=== PATIENT | female | born 1990 | race African-American/Black ===

== ENCOUNTER 2016-10-05 09:38 | Emergency (ER) | payer MEDICAID ==
--- NOTE | 2016-10-05 10:12 | ER Document Report ---
ED General - General Chief Complaint: Abdominal Pain Stated Complaint: ABDOMINAL PAIN Mode of Arrival: Ambulatory Information source: Patient Notes: 26-year-old female presents with complaints of left flank pain left lower quadrant abdominal pain since yesterday. Patient notes this is similar to previous kidney infection. Patient denies any fevers admits to nausea vomiting 5. Patient denies any burning on urination, denies any vaginal bleeding or discharge TRAVEL OUTSIDE OF THE [place] IN LAST 30 DAYS: No - HPI Onset: Yesterday Onset/Duration: Persistent Quality of pain: Achy Severity: Mild Pain Level: 1 Associated symptoms: Nausea, Vomiting Exacerbated by: Denies Relieved by: Denies Similar symptoms previously: Yes Recently seen / treated by doctor: No - Related Data Allergies/Adverse Reactions: No Known Allergies Allergy (Verified 10/05/16 09:52) Home Medications: Current Home Medications No Home Medications 10/05/16 [History] Past Medical History - Social History Smoking Status: Never Smoker Cigarette use (# per day): No Chew tobacco use (# tins/day): No Smoking Education Provided: No Frequency of alcohol use: Occasional Drug Abuse: None Family History: Reviewed & Not Pertinent Patient has suicidal ideation: No Patient has homicidal ideation: No Renal/ Medical History: Denies: Hx Peritoneal Dialysis Past Surgical History: Reports: Hx Section - Immunizations Hx Diphtheria, Pertussis, Tetanus Vaccination: Yes - 09/22/15 Review of Systems - Review of Systems Notes: REVIEW OF SYSTEMS: CONSTITUTIONAL : Denies fever, chills, or sweats. Denies recent illness. EENT: Denies eye, ear, throat, or mouth pain or symptoms. Denies nasal or sinus congestion or discharge. Denies throat, tongue, or mouth swelling or difficulty swallowing. CARDIOVASCULAR: Denies chest pain. Denies palpitations or racing or irregular heart beat. Denies ankle edema. RESPIRATORY: Denies cough, cold, or chest congestion. Denies shortness of breath, difficulty breathing, or wheezing. GASTROINTESTINAL: Admits to left flank pain left lower quadrant tenderness GENITOURINARY: Denies difficulty urinating, painful urination, burning, frequency, blood in urine, or discharge. FEMALE GENITOURINARY: Denies vaginal bleeding, heavy or abnormal periods, irregular periods. Denies vaginal discharge or odor. MUSCULOSKELETAL: Denies back or neck pain or stiffness. Denies joint pain or swelling. SKIN: Denies rash, lesions or sores. HEMATOLOGIC : Denies easy bruising or bleeding. LYMPHATIC: Denies swollen, enlarged glands. NEUROLOGICAL: Denies confusion or altered mental status. Denies passing out or loss of consciousness. Denies dizziness or lightheadedness. Denies headache. Denies weakness or paralysis or loss of use of either side. Denies problems with gait or speech. Denies sensory loss, numbness, or tingling. Denies seizures. PSYCHIATRIC: Denies anxiety or stress. Denies depression, suicidal ideation, or homicidal ideation. ALL OTHER SYSTEMS REVIEWED AND NEGATIVE. Dictation was performed using [employer] voice recognition software PHYSICAL EXAMINATION: GENERAL: Well-appearing, well-nourished and in no acute distress. HEAD: Atraumatic, normocephalic. EYES: Pupils equal round and reactive to light, extraocular movements intact, conjunctiva are normal. ENT: Nares patent, oropharynx clear without exudates. Moist mucous membranes. NECK: Normal range of motion, supple without lymphadenopathy LUNGS: Breath sounds clear to auscultation bilaterally and equal. No wheezes rales or rhonchi. HEART: Regular rate and rhythm without murmurs ABDOMEN: Soft, mild tenderness in left lower quadrant left CVA tenderness Female : deferred Musculoskeletal: Normal range of motion, no pitting or edema. No cyanosis. NEUROLOGICAL: Cranial nerves grossly intact. Normal speech, normal gait. Normal sensory, motor exams PSYCH: Normal mood, normal affect. SKIN: Warm, Dry, normal turgor, no rashes or lesions noted. Physical Exam - Vital signs Vitals: Temp Pulse Resp BP Pulse Ox 97.7 F 59 L 18 124/81 100 10/05/16 09:43 10/05/16 09:43 10/05/16 09:43 10/05/16 09:43 10/05/16 09:43 Course - Re-evaluation Re-evalutation: 10/05/16 10:12 Patient didn't pain does not appear to be ovarian in nature, her symptoms are more consistent with a kidney infection, urinalysis is pending at this time 10/05/16 11:40 Urinalysis did not note any acute abnormality patient will be sent for a transvaginal ultrasound 10/05/16 11:56 Ultrasound was performed however and patient are insistent that they leave prior to results. I did explain to them the concerns that there is any life-threatening issues that I cannot have further workup since she is leaving, given that I do not have an answer specifically for her concerns this would be a discharge with the understanding that is not appropriate for her to leave prior to results returning However patient vital signs are stable lab work is normal she looks well otherwise - Vital Signs Vital signs: Temp Pulse Resp BP Pulse Ox 97.7 F 59 L 18 124/81 100 10/05/16 09:43 10/05/16 09:43 10/05/16 09:43 10/05/16 09:43 10/05/16 09:43 - Laboratory Result Diagrams: 10/05/16 10:20 10/05/16 10:20 Laboratory results interpreted by me: 10/05/16 10:20 RDW 14.2 H - Diagnostic Test Radiology reviewed: Image reviewed Discharge - Discharge Clinical Impression: Left lower quadrant abdominal pain of unknown etiology Condition: Stable Disposition: HOME, SELF-CARE Instructions: Abdominal Pain ([facility]) Additional Instructions: Follow up with your physician tomorrow for further care or return to the ED IMMEDIATELY if symptoms worsen or new concerns occur. If you cannot afford to follow up with your primary care physician a list of low cost clinics have been provided at the end of your discharge papers as well. You are leaving without ultrasound report, if there is any worsening symptoms return immediately
[2016-10-05 10:37] LABS: APPEARANCE,URINE CLEAR; BILIRUBIN,URINE NEGATIVE (NEGATIVE); GLUCOSE, URINE NEGATIVE (NEGATIVE); KETONES,URINE NEGATIVE (NEGATIVE); LEUKOCYTE ESTERASE,URINE NEGATIVE (NEGATIVE); NITRITE,URINE NEGATIVE (NEGATIVE); PROTEIN,URINE NEGATIVE (NEGATIVE); URINE SPECIFIC GRAVITY 1.026; UROBILINOGEN,URINE NEGATIVE mg/dL (<2.0)
[2016-10-05 10:38] LABS: ABSOLUTE BASOPHILS # (AUTO) 0.1 10^3/uL (0.0-0.2); ABSOLUTE EOSINOPHILS # (AUTO) 0.3 10^3/uL (0.0-0.6); ABSOLUTE LYMPHOCYTES (AUTO) 3.3 10^3/uL (0.5-4.7); ABSOLUTE MONOCYTES (AUTO) 0.6 10^3/uL (0.1-1.4); ABSOLUTE NEUT (AUTO) 4.8 10^3/uL (1.7-8.2); EOSINOPHILS % (AUTO) 3.6 % (0-6); HEMATOCRIT 37.5 % (36.0-47.0); HEMOGLOBIN 12.5 g/dL (12.0-15.5); LYMPHOCYTES % (AUTO) 35.6 % (13-45); MEAN CORPUSCULAR HEMOGLOBIN 28.1 pg (27.0-33.4); MEAN CORPUSCULAR HGB CONC 33.5 g/dL (32.0-36.0); MEAN CORPUSCULAR VOLUME 84 fl (80-97); MONOCYTES % (AUTO) 7.1 % (3-13); RED BLOOD COUNT 4.46 10^6/uL (3.72-5.28); RED CELL DISTRIBUTION WIDTH 14.2 % (11.5-14.0); SEGMENTED NEUTROPHILS % (AUTO) 52.7 % (42-78); WHITE BLOOD COUNT 9.2 10^3/uL (4.0-10.5)
[2016-10-05 10:53] LABS: ALANINE AMINOTRANSFERASE 20 U/L (9-52); ALBUMIN 4.7 g/dL (3.5-5.0); ALKALINE PHOSPHATASE 68 U/L (38-126); ANION GAP 15 (5-19); ASPARTATE AMINO TRANSFERASE 17 U/L (14-36); BILIRUBIN,DIRECT 0.1 mg/dL (0.0-0.4); BILIRUBIN,TOTAL 0.3 mg/dL (0.2-1.3); BLOOD UREA NITROGEN 15 mg/dL (7-20); CALCIUM 9.8 mg/dL (8.4-10.2); CARBON DIOXIDE 26 mmol/L (22-30); CHLORIDE 104 mmol/L (98-107); CREATININE RESULT 0.68 mg/dL (0.52-1.25); GLUCOSE 91 mg/dL (75-110); LIPASE 70.6 U/L (23-300); POTASSIUM 4.4 mmol/L (3.6-5.0); SODIUM 144.6 mmol/L (137-145); TOTAL PROTEIN 8.1 g/dL (6.3-8.2)
[2016-10-05 12:08] VITALS: BP 122/74
== END 2016-10-05 12:00 | disposition home or self-care (01) ==
LOC: ER 09:38 → EEVIPCON 09:38 → ER 12:00
DX: R10.32 Left lower quadrant pain (principal); R11.2 Nausea with vomiting, unspecified; Z87.440 Personal history of urinary (tract) infections
CPT/HCPCS: 36415; 76830; 80053; 81001; 81025; 83690; 85025; 93976; 99284

== ENCOUNTER 2016-10-27 14:00 | Emergency (ER) | payer MEDICAID ==
--- NOTE | 2016-10-27 21:46 | ER Document Report ---
ED GI/ - General Mode of Arrival: Ambulatory Information source: Patient TRAVEL OUTSIDE OF THE [place] IN LAST 30 DAYS: No - HPI Patient complains to provider of: Abdominal pain, Vomiting Onset: Other Quality of pain: Cramping Associated symptoms: None - General Time Seen by Provider: 10/27/16 21:27 Notes: Patient is a 26-year-old female who presents to the emergency department today with complaints of an upset stomach. Patient states 4 days ago she had URI symptoms including cough and congestion. Patient states 2 days ago that seemed to get better however she developed diarrhea and vomiting. Patient states she has had mild abdominal cramping. Patient states her last menstrual period was . (MARTIN SAEED) - Related Data Allergies/Adverse Reactions: No Known Allergies Allergy (Verified 10/05/16 09:52) Past Medical History - General Information source: Patient, [facility] Records - Social History Smoking Status: Never Smoker Cigarette use (# per day): No Frequency of alcohol use: None Drug Abuse: None Lives with: Family Family History: Reviewed & Not Pertinent Past Surgical History: Reports: Hx Section - Immunizations Hx Diphtheria, Pertussis, Tetanus Vaccination: Yes - 09/22/15 Review of Systems - Review of Systems Constitutional: No symptoms reported EENT: No symptoms reported Cardiovascular: No symptoms reported Respiratory: No symptoms reported Gastrointestinal: See HPI, Abdominal pain - cramping, Nausea, Vomiting Genitourinary: No symptoms reported Female Genitourinary: No symptoms reported Musculoskeletal: No symptoms reported Skin: No symptoms reported Hematologic/Lymphatic: No symptoms reported Neurological/Psychological: No symptoms reported -: Yes All other systems reviewed and negative Physical Exam - Notes Notes: Physical Exam: General: Alert, appears well. HEENT: Normocephalic. Atraumatic. PERRL. Extraocular movements intact. Oropharynx clear. Neck: Supple. Non-tender. Respiratory: No respiratory distress. Clear and equal breath sounds bilaterally. Cardiovascular: Regular rate and rhythm. Abdominal: Normal Inspection. Non-tender. No distension. Normal Bowel Sounds. Back: Non-tender. No deformity or step off. Extremities: Moves all four extremities. Upper extremities: Normal inspection. Normal ROM. Lower extremities: Normal inspection. No edema. Normal ROM. Neurological: Normal cognition. AAOx4. Normal speech. Psychological: Normal affect. Normal Mood. Skin: Warm. Dry. Normal color. (MARTIN SAEED) Course - Re-evaluation Re-evalutation: 10/27/16 22:26 The patient was given the medication for nausea and then requested her discharge papers according to the nurse. She had been eating crackers and drinking sodas. I suspect she was here for a test only. (DAVI HENAO) Discharge - Discharge Clinical Impression: Nausea, vomiting and diarrhea, Condition: Stable Disposition: HOME, SELF-CARE Additional Instructions: : You are . care is best started as early in as possible. If you're unsure about continuing this , you should discuss this with your physician or with chisel worker at [facility]. You should take only medications approved by your physician. Acetaminophen can safely be taken for minor pains. As a rule, medication for chronic conditions such as asthma or seizures can safely be continued. You should discuss with the physician every medicine you take. Any regular exercise program can be continued. Talk to your physician, however, before engaging in competitive or demanding sports. Alcohol, smoking, and "street drugs" are dangerous to your baby. Cocaine is especially dangerous. Don't use any illicit drugs! Viral Syndrome: The physician has diagnosed a viral infection. Viruses not only cause "colds," but can cause many different symptoms including generalized aching, fever, headache, cough, diarrhea, nausea, vomiting, and fatigue. The treatment, for the most part, is simply relief of symptoms. This means that antibiotics are usually not given. Rest, fluids, pain medications and, occasionally, medication for the specific symptoms that are most bothersome will be prescribed. Use good handwashing to avoid passing the virus to others. Shared toys should be cleaned with disinfectant. Clean the toilets, sinks, and counter surfaces in bathrooms. Launder clothing in hot water. Contact the physician if you develop any new or unusual symptoms such as severe headache, stiff neck, high fever, chest pain, productive cough, or shortness of breath. You should be rechecked if you don't see marked improvement within seven to 10 days. DRINK COOL CLEAR LIQUIDS TODAY. REST. TAKE THE MEDICATION PRESCRIBED FOR NAUSEA IF NEEDED. FOLLOW UP WITH YOUR DOCTOR AND THE HEALTH DEPARTMENT. RETURN IF ANY NEW OR WORSENING SYMPTOMS. Prescriptions: Promethazine HCl [Phenergan 25 mg Tablet] 25 mg PO ASDIR PRN #12 tablet PRN Reason: Scribe Attestation: 10/27/16 22:33 I personally performed the services described in the documentation, reviewed and edited the documentation which was dictated to the scribe in my presence, and it accurately records my words and actions. (DAVI HENAO) Scribe Documentation - Scribe Written by Alina:: Alina Woody, 10/27/16 [id number] acting as scribe for :: Lizz
[2016-10-27] MEDS ORDERED: PROMETHAZINE HCL 25 MG TABLET PO ONE (21:55)
[2016-10-27] MEDS ORDERED: DIPHENHYDRAMINE HCL 25 MG CAPSULE PO ONE (21:55)
[2016-10-27 21:56] LABS: ADD ON TESTING BLD IN LAB ACKNOWLEDGE
[2016-10-27 23:03] VITALS: BP 123/80
[2016-10-28 08:18] LABS: ABSOLUTE BASOPHILS # (AUTO) 0.1 10^3/uL (0.0-0.2); ABSOLUTE EOSINOPHILS # (AUTO) 0.1 10^3/uL (0.0-0.6); ABSOLUTE LYMPHOCYTES (AUTO) 3.2 10^3/uL (0.5-4.7); ABSOLUTE MONOCYTES (AUTO) 0.5 10^3/uL (0.1-1.4); ABSOLUTE NEUT (AUTO) 4.7 10^3/uL (1.7-8.2); BASOPHILS % (AUTO) 0.6 % (0-2); HEMATOCRIT 37.2 % (36.0-47.0); HEMOGLOBIN 12.2 g/dL (12.0-15.5); HGB HCT DIFFERENCE -0.6; LYMPHOCYTES % (AUTO) 37.2 % (13-45); MEAN CORPUSCULAR HEMOGLOBIN 28.2 pg (27.0-33.4); MEAN CORPUSCULAR HGB CONC 32.8 g/dL (32.0-36.0); MEAN CORPUSCULAR VOLUME 86 fl (80-97); MONOCYTES % (AUTO) 6.3 % (3-13); RED BLOOD COUNT 4.32 10^6/uL (3.72-5.28); RED CELL DISTRIBUTION WIDTH 14.3 % (11.5-14.0); SEGMENTED NEUTROPHILS % (AUTO) 54.9 % (42-78); WHITE BLOOD COUNT 8.5 10^3/uL (4.0-10.5)
[2016-10-28 14:29] LABS: APPEARANCE,URINE SLIGHTLY-CLOUDY; BILIRUBIN,URINE NEGATIVE (NEGATIVE); GLUCOSE, URINE NEGATIVE (NEGATIVE); KETONES,URINE TRACE mg/dL (NEGATIVE); LEUKOCYTE ESTERASE,URINE NEGATIVE (NEGATIVE); NITRITE,URINE NEGATIVE (NEGATIVE); PROTEIN,URINE NEGATIVE (NEGATIVE); URINE SPECIFIC GRAVITY 1.032; UROBILINOGEN,URINE NEGATIVE mg/dL (<2.0)
[2016-10-28 17:43] LABS: BLOOD UREA NITROGEN 21 mg/dL (7-20); CALCIUM 9.4 mg/dL (8.4-10.2); CREATININE RESULT 0.68 mg/dL (0.52-1.25); GLUCOSE 94 mg/dL (75-110); POTASSIUM 4.1 mmol/L (3.6-5.0)
[2016-10-28 17:44] LABS: ALBUMIN 4.3 g/dL (3.5-5.0); ANION GAP 13 (5-19); CARBON DIOXIDE 22 mmol/L (22-30); CHLORIDE 106 mmol/L (98-107); SODIUM 141.1 mmol/L (137-145)
[2016-10-28 17:45] LABS: ALANINE AMINOTRANSFERASE 24 U/L (9-52); ALKALINE PHOSPHATASE 62 U/L (38-126); ASPARTATE AMINO TRANSFERASE 13 U/L (14-36); BILIRUBIN,TOTAL 0.3 mg/dL (0.2-1.3)
[2016-10-28 17:46] LABS: BILIRUBIN,DIRECT 0.2 mg/dL (0.0-0.4); LIPASE 98.7 U/L (23-300); TOTAL PROTEIN 7.7 g/dL (6.3-8.2)
== END 2016-10-27 22:50 | disposition home or self-care (01) ==
LOC: ER 14:00
DX: O21.9 Vomiting of pregnancy, unspecified (principal); R19.7 Diarrhea, unspecified; R10.9 Unspecified abdominal pain; Z3A.01 Less than 8 weeks gestation of pregnancy
CPT/HCPCS: 99284; 36415; 84702; 83690; 84703; 85025; 80053; 81001; J3490 ×2

== ENCOUNTER 2016-11-03 13:08 | Emergency (ER) | payer MEDICAID ==
[2016-11-03 13:24] VITALS: BP 127/80
--- NOTE | 2016-11-03 13:36 | ER Document Report ---
ED GI/ - General Chief Complaint: Vomiting Stated Complaint: VOMITING,LIGHTHEADED Time Seen by Provider: 11/03/16 13:32 Notes: Patient is here because her workplace requires a note for her to return to work. Patient was here about 1 week ago with nausea and vomiting and she was found to be . She is continued to have nausea and vomiting, although the Phenergan seems to be helping, but was unable to work last night and has to have a note in order to return to work. She has had some lightheadedness as well as the nausea and vomiting. No diarrhea. No fevers. No other symptoms of any infection. Denies any abdominal pain or vaginal bleeding. LMP 09/25. TRAVEL OUTSIDE OF THE [place] IN LAST 30 DAYS: No - Related Data Allergies/Adverse Reactions: No Known Allergies Allergy (Verified 11/03/16 13:19) Past Medical History - Social History Smoking Status: Unknown if Ever Smoked Family History: Reviewed & Not Pertinent Patient has suicidal ideation: No Patient has homicidal ideation: No Endocrine Medical History: Denies: Hx Diabetes Mellitus Type 1, Hx Diabetes Mellitus Type 2 Past Surgical History: Reports: Hx Section - Immunizations Hx Diphtheria, Pertussis, Tetanus Vaccination: Yes - 09/22/15 Review of Systems - Review of Systems Constitutional: denies: Chills, Fever Cardiovascular: denies: Chest pain, Dyspnea, Syncope Respiratory: denies: Cough Physical Exam - Vital signs Vitals: Temp Pulse Resp BP Pulse Ox 98.0 F 75 16 127/80 H 100 11/03/16 13:19 11/03/16 13:19 11/03/16 13:19 11/03/16 13:19 11/03/16 13:19 - Notes Notes: PHYSICAL EXAMINATION: GENERAL: Well-appearing, in no acute distress. Vital signs are normal. HEAD: Atraumatic, normocephalic. Moist mucous membranes. NECK: Normal range of motion, supple. LUNGS: Breath sounds clear and equal bilaterally. HEART: Regular rate and rhythm without murmurs. ABDOMEN: Soft, nontender. No guarding or rebound. BACK: No tenderness throughout entire back. EXTREMITIES: Normal range of motion without pain. SKIN: Warm, dry, no rashes. Course - Re-evaluation Re-evalutation: 11/03/16 15:48 Says she feels much better than she has felt in the past week and is really only here because she needs a note saying she can return to work. I offered to do further testing on her, if she felt so inclined, but she says that she really does not want to do any tests. She says that she has ample nausea and vomiting medicine at home. Patient will be provided with a note saying she can return to work tomorrow. - Vital Signs Vital signs: Temp Pulse Resp BP Pulse Ox 98.0 F 75 16 127/80 H 100 11/03/16 13:19 11/03/16 13:19 11/03/16 13:19 11/03/16 13:19 11/03/16 13:19 Discharge - Discharge Clinical Impression: Vomiting affecting Qualifiers: Weeks of gestation: less than 8 weeks Qualified Code(s): Z3A.01 - Less than 8 weeks gestation of Condition: Stable Disposition: HOME, SELF-CARE Additional Instructions: You are . care is best started as early in as possible. If you're unsure about continuing this , you should discuss this with your physician or with vp scientific at [facility]. You should take only medications approved by your physician. Acetaminophen can safely be taken for minor pains. As a rule, medication for chronic conditions such as asthma or seizures can safely be continued. You should discuss with the physician every medicine you take. Any regular exercise program can be continued. Talk to your physician, however, before engaging in competitive or demanding sports. Alcohol, smoking, and "street drugs" are dangerous to your baby. Cocaine is especially dangerous. Don't use any illicit drugs! VOMITING: Vomiting (or nausea without vomiting) can be caused by many other different problems. It can mean that something's wrong with the stomach, such as ulcers or inflammation or the intestinal tract, such as appendicitis. But it can also be a symptom of a problem that has nothing to do with the stomach or intestines. Vomiting is common with severe headaches, earaches, tonsillitis, and kidney infections, etc. We see it with pneumonia or heart attacks. Drugs can cause nausea and vomiting. Many abdominal problems cause vomiting; for example, gallstones, kidney stones, pancreatitis, and intestinal obstruction ( blocked bowels). In most cases, curing the vomiting depends on fixing the problem that caused it. For temporary relief, we may use an anti-nausea medicine. For home use, we can prescribe suppositories, chewable pills, pills that dissolve in the mouth, or liquid anti-nausea drugs. If the vomiting seems to be caused by a problem in the stomach, acid-suppressing drugs may be prescribed as well. It's important to avoid dehydration. Sip small amounts of clear liquids ( soft drinks, tea, broth, etc) . Try to take fluids frequently even if you are vomiting to prevent dehydration. Take increasing amounts of fluid and when liquids are being consumed successfully, advance to small amounts of bland food (toast, soups, mashed potatoes, etc.) until you are able to resume a regular diet. Avoid aspirin, tobacco, and alcohol. If the vomiting worsens, if the problem that's making you vomit worsens, or if there's evidence of bleeding in the stomach (such as black, tarry stool, or bloody or black vomit), you should return immediately. Also, return if abdominal pain worsens or becomes localized to one area or you develop high fever. Call your doctor if you aren't improved in 24 hours. ANTINAUSEA MEDICATION: You have been given a medication to suppress nausea and vomiting. This type of medication can be given as a shot, pill, or suppository. It will usually last for many hours. Pills and shots usually last six to eight hours. For the typical illness, only one or two doses of the medication may be necessary. Mild lightheadedness may occur. This type of medicine can cause drowsiness. Do not drive or operate dangerous machinery while under its influence. Do not mix with alcohol. See your doctor at once if you have muscle spasms or tightness, or uncontrollable motions (particularly of the neck, mouth, or jaw). Persistent vomiting or severe lightheadedness should also be evaluated by the physician. FOLLOW-UP CARE: If you have been referred to a physician for follow-up care, call the physician s office for an appointment as you were instructed or within the next two days. If you experience worsening or a significant change in your symptoms, notify the physician immediately or return to the Emergency Department at any time for re-evaluation. Forms: Return to Work Referrals: [facility] [Provider Group] - Follow up as needed
== END 2016-11-03 13:38 | disposition home or self-care (01) ==
LOC: ER 13:08
DX: R11.10 Vomiting, unspecified (principal); R42 Dizziness and giddiness; Z3A.01 Less than 8 weeks gestation of pregnancy
CPT/HCPCS: 99283

== ENCOUNTER 2016-12-02 09:32 | Emergency (ER) | payer MEDICAID ==
[2016-12-02] MEDS ORDERED: ONDANSETRON 4 MG TAB.RAPDIS PO ONE (09:50)
--- NOTE | 2016-12-02 09:52 | ER Document Report ---
ED Medical Screen (RME) - General Chief Complaint: Abdominal Cramping Stated Complaint: DIZZINESS,ABDOMINAL PAIN Time Seen by Provider: 12/02/16 09:50 Notes: Patient says that she is vomiting all the time due to her . She is about 9 weeks . Says the vomiting has worsened over the last couple of weeks. Has not had a fever. Says her urine is very dark and strong smelling. Patient says that Phenergan makes her so sleepy she cannot function or work. TRAVEL OUTSIDE OF THE [place] IN LAST 30 DAYS: No - Related Data Allergies/Adverse Reactions: No Known Allergies Allergy (Verified 12/02/16 09:38) Past Medical History - Social History Chew tobacco use (# tins/day): No Frequency of alcohol use: None Drug Abuse: None Endocrine Medical History: Denies: Hx Diabetes Mellitus Type 1, Hx Diabetes Mellitus Type 2 Renal/ Medical History: Denies: Hx Peritoneal Dialysis Past Surgical History: Reports: Hx Section - Immunizations Hx Diphtheria, Pertussis, Tetanus Vaccination: Yes - 09/22/15 Physical Exam - Vital signs Vitals: Temp Pulse Resp BP Pulse Ox 98.3 F 80 16 118/77 97 12/02/16 09:37 12/02/16 09:37 12/02/16 09:37 12/02/16 09:37 12/02/16 09:37 Course - Vital Signs Vital signs: Temp Pulse Resp BP Pulse Ox 98.3 F 80 16 118/77 97 12/02/16 09:37 12/02/16 09:37 12/02/16 09:37 12/02/16 09:37 12/02/16 09:37
[2016-12-02 10:41] LABS: APPEARANCE,URINE CLOUDY; BILIRUBIN,URINE NEGATIVE (NEGATIVE); GLUCOSE, URINE NEGATIVE (NEGATIVE); KETONES,URINE NEGATIVE (NEGATIVE); LEUKOCYTE ESTERASE,URINE LARGE (NEGATIVE); NITRITE,URINE NEGATIVE (NEGATIVE); PROTEIN,URINE 100 mg/dL (NEGATIVE); URINE SPECIFIC GRAVITY 1.026; UROBILINOGEN,URINE NEGATIVE mg/dL (<2.0)
[2016-12-02] MEDS ORDERED: NITROFURANTOIN MONOHYD/M-CRYST 100 MG CAPSULE PO ONE (10:50)
[2016-12-02] MEDS ORDERED: ACETAMINOPHEN 325 MG TABLET PO ONE (10:59)
--- NOTE | 2016-12-02 12:40 | RADIOLOGY REPORT (SQ) ---
EXAM DESCRIPTION: U/S OB TRANSVAGINAL W/O DOP COMPLETED DATE/TIME: 12/02/2016 12:30 pm REASON FOR STUDY: abd pain, uti COMPARISON: None. TECHNIQUE: Transvaginal static and realtime grayscale images acquired of the pelvis. Additional kandi cted spectral and color Doppler images recorded. All images stored on PACs. bHCG: Not available. LIMITATIONS: None. FINDINGS: FETUS: Living intrauterine . EGA: 9 weeks 6 days CHARLES: 07/01/2017 FHR: 178 beats per minute. SUBCHORIONIC BLEED: No SIZE OF BLEED: Not applicable. UTERUS: 11.6 x 8.2 x 7.8 cm. No masses. CERVICAL LENGTH: 3 cm. Closed. RIGHT ADNEXA: 50 x 27 x 29 mm. There is a 27 x 21 x 24 mm cyst. No adnexal free fluid. No adnexal masses. LEFT ADNEXA: Not seen. No adnexal free fluid. No adnexal masses. FREE FLUID: None. OTHER: No other significant finding. IMPRESSION: There is a live intrauterine gestation 9 weeks 6 days with an estimated date of delivery of 07/01/2017. Trimester of : First - 0 to 13 weeks. TECHNICAL DOCUMENTATION: JOB ID: [id number] [employer]- All Rights Reserved
[2016-12-02] MEDS ORDERED: METOCLOPRAMIDE HCL 10 MG TABLET PO ONE (13:19)
--- NOTE | 2016-12-02 13:35 | ER Document Report ---
ED GI/ - General Chief Complaint: Abdominal Cramping Stated Complaint: DIZZINESS,ABDOMINAL PAIN Time Seen by Provider: 12/02/16 09:50 Mode of Arrival: Ambulatory Information source: Patient Notes: Patient is a 26-year-old female approximately 9 weeks who presents to the ER today for strong smelling urine 3 days, dehydration, lower abdominal cramping, low back pain, worse on the left side. Patient also states that she has nausea and vomiting with her . She is not taking her Phenergan, vitamins or iron because it "makes me sleepy." He denies fever chills. Has not had any care yet. TRAVEL OUTSIDE OF THE [place] IN LAST 30 DAYS: No - Related Data Allergies/Adverse Reactions: No Known Allergies Allergy (Verified 12/02/16 09:38) Past Medical History - General Information source: Patient - Social History Smoking Status: Never Smoker Chew tobacco use (# tins/day): No Frequency of alcohol use: None Drug Abuse: None Family History: Reviewed & Not Pertinent Patient has suicidal ideation: No Patient has homicidal ideation: No Endocrine Medical History: Denies: Hx Diabetes Mellitus Type 1, Hx Diabetes Mellitus Type 2 Renal/ Medical History: Denies: Hx Peritoneal Dialysis Past Surgical History: Reports: Hx Section - Immunizations Hx Diphtheria, Pertussis, Tetanus Vaccination: Yes - 09/22/15 Review of Systems - Review of Systems Constitutional: No symptoms reported EENT: No symptoms reported Cardiovascular: No symptoms reported Respiratory: No symptoms reported Gastrointestinal: No symptoms reported Genitourinary: See HPI Female Genitourinary: No symptoms reported Musculoskeletal: No symptoms reported Skin: No symptoms reported Hematologic/Lymphatic: No symptoms reported Neurological/Psychological: No symptoms reported Physical Exam - Vital signs Vitals: Temp Pulse Resp BP Pulse Ox 98.3 F 80 16 118/77 97 12/02/16 09:37 12/02/16 09:37 12/02/16 09:37 12/02/16 09:37 12/02/16 09:37 - Notes Notes: PHYSICAL EXAMINATION: GENERAL: Well-appearing and in no acute distress. HEAD: Atraumatic, normocephalic. EYES: Pupils equal round and reactive to light, extraocular movements intact, sclera anicteric, conjunctiva are normal. NECK: Normal range of motion, supple without lymphadenopathy LUNGS: CTAB and equal. No wheezes rales or rhonchi. HEART: Regular rate and rhythm without murmurs ABDOMEN: Soft, no tenderness. No guarding, no rebound BACK: no vertebral tenderness, normal ROM GI/: no CVA tenderness EXTREMITIES: Normal range of motion, no pitting edema. No cyanosis. NEUROLOGICAL: Cranial nerves grossly intact. Normal sensory/motor exams. PSYCH: Normal mood, normal affect. SKIN: Warm, Dry, normal turgor, no rashes or lesions noted Course - Re-evaluation Re-evalutation: 12/02/16 13:34 patient has a UTI, will treat her with Macrobid as she is . Transvaginal ultrasound revealed a living intrauterine at 9 weeks with a heart rate of 178 bpm. No abnormalities. - Vital Signs Vital signs: Temp Pulse Resp BP Pulse Ox 98.7 F 67 18 114/72 100 12/02/16 12:39 12/02/16 12:39 12/02/16 12:39 12/02/16 12:39 12/02/16 12:39 - Laboratory Laboratory results interpreted by me: 12/02/16 09:55 Urine Protein 100 H Urine Blood MODERATE H Ur Leukocyte Esterase LARGE H Discharge - Discharge Clinical Impression: UTI (urinary tract infection) during Qualifiers: Trimester: first trimester Qualified Code(s): O23.41 - Unspecified infection of urinary tract in , first trimester Condition: Stable Disposition: HOME, SELF-CARE Instructions: Urinary Tract Infection ([facility]), Nitrofurantoin ([facility]) Additional Instructions: Return immediately for any new or worsening symptoms. Follow up with [facility], call tomorrow to make followup appointment. Prescriptions: Nitrofurantoin/Nitrofuran Mac [Macrobid 100 mg Capsule] 1 tab PO BID #20 capsule Ondansetron [Zofran Odt 4 mg Tablet] 1 - 2 tab PO Q4H PRN #15 tab.rapdis PRN Reason: For Nausea/Vomiting Referrals: LING WHIPPLE MD [Primary Care Provider] - Follow up as needed [facility] [Provider Group] - Follow up as needed
[2016-12-02 13:47] VITALS: BP 112/68
== END 2016-12-02 13:47 | disposition home or self-care (01) ==
LOC: ER 09:32
DX: O23.41 Unspecified infection of urinary tract in pregnancy, first trimester (principal); O21.9 Vomiting of pregnancy, unspecified; T42.6X6A Underdosing of other antiepileptic and sedative-hypnotic drugs, initial encounter; O26.891 Other specified pregnancy related conditions, first trimester; R10.30 Lower abdominal pain, unspecified; T45.2X6A Underdosing of vitamins, initial encounter; T45.4X6A Underdosing of iron and its compounds, initial encounter; Z91.128 Patient's intentional underdosing of medication regimen for other reason; Z91.14 Patient's other noncompliance with medication regimen; O99.89 Other specified diseases and conditions complicating pregnancy, childbirth and the puerperium; M54.5 Low back pain; Z3A.09 9 weeks gestation of pregnancy
CPT/HCPCS: 99284; 81001; 76817; J3490 ×3; S0119; J8499

== ENCOUNTER 2017-06-29 11:32 | Outpatient (CLI) | payer MEDICAID | END 2017-06-29 12:21 | disposition home or self-care (01) | LOC: LC 11:32 | PROVIDERS: ATTEND Obstetrics & Gynecology Gynecology | PROC: 4A1HXCZ Monitoring of Products of Conception, Cardiac Rate, External Approach (ICD-10-PCS; principal; 2017-06-29) | DX: Z34.93 Encounter for supervision of normal pregnancy, unspecified, third trimester (principal) | CPT/HCPCS: 59025 ==

== ENCOUNTER 2017-06-30 10:08 | Inpatient (IN) | payer MEDICAID ==
--- NOTE | 2017-06-30 10:10 | Non Stress Test Report ---
Non Stress Test Datetime Report Generated by CPN: 06/30/2017 10:09 DEMOGRAPHIC EGA NST: 39.4 INDICATION Indication for Study: Ordered by Provider MONITORING Monitor Explained: Monitor Explained; Test Explained; Patient Verbalized Understanding Time on Monitor: 06/29/2017 11:45 Time off Monitor: 06/29/2017 12:18 NST Duration: 33 NST INTERVENTIONS NST Interventions: PO Hydration; Reposition Patient Physician Notified NST: A.Emmel, CNM BABY A: [id number] BABY A Movement : Present Contraction Frequency : None FHR Baseline : 135 Accelerations : 15X15 Decelerations : None Variability : Moderate 6-25bpm NST Review: Meets Criteria for Reactive NST NST Review and Verified By : MAKAYLA Das Results: Reactive NST REPORT Report Trigger: Send Report
[2017-06-30] MEDS ORDERED: MISOPROSTOL 0.2 MG TABLET ONE (10:26)
[2017-06-30] MEDS ORDERED: RINGERS SOLUTION,LACTATED 300 ML IV ONE (10:26)
[2017-06-30] MEDS ORDERED: RINGERS SOLUTION,LACTATED 1,000 ML IV PRN (10:26)
[2017-06-30] MEDS ORDERED: LIDOCAINE 1% INJ-PF (10 MG/ML) 30 ML SDV ONE (10:27)
[2017-06-30] MEDS ORDERED: OXYTOCIN/NORMAL SALINE 20 UNIT/1,000 ML RTUINJ ONE (10:27)
[2017-06-30 11:00] LABS: APPEARANCE,URINE CLOUDY; BILIRUBIN,URINE NEGATIVE (NEGATIVE); COLOR,URINE YELLOW; GLUCOSE, URINE NEGATIVE (NEGATIVE); KETONES,URINE NEGATIVE (NEGATIVE); LEUKOCYTE ESTERASE,URINE LARGE (NEGATIVE); NITRITE,URINE NEGATIVE (NEGATIVE); PROTEIN,URINE NEGATIVE (NEGATIVE); URINE SPECIFIC GRAVITY 1.014; UROBILINOGEN,URINE NEGATIVE mg/dL (<2.0)
[2017-06-30] MEDS ORDERED: OXYTOCIN 10 UNIT/ML VIAL ONE (11:01)
[2017-06-30 11:16] LABS: URINE AMPHETAMINES SCREEN NEGATIVE; URINE BARBITURATES SCREEN NEGATIVE; URINE BENZODIAZEPINES SCREEN NEGATIVE; URINE COCAINE SCREEN NEGATIVE; URINE METHADONE SCREEN NEGATIVE; URINE PHENCYCLIDINE SCREEN NEGATIVE
[2017-06-30 11:17] LABS: URINE MARIJUANA (THC) SCREEN UNCONFIRMED POSITIVE
[2017-06-30] MEDS ORDERED: DIBUCAINE 1% OINTMENT 28 GM TP PRN (11:17)
[2017-06-30] MEDS ORDERED: ACETAMINOPHEN WITH CODEINE #3 TABLET PO PRN (11:17)
[2017-06-30] MEDS ORDERED: IBUPROFEN 800 MG TABLET ONE (11:17)
[2017-06-30] MEDS ORDERED: DIPH/PERTUSS(ACELL)/TETANUS VAC/PF 0.5 ML SYR (>=10YO) IM PRN (11:17)
[2017-06-30] MEDS ORDERED: BENZOCAINE/MENTHOL AEROSOL SPRAY 56 ML TOP PRN (11:17)
[2017-06-30] MEDS ORDERED: OXYTOCIN/NORMAL SALINE 20 UNIT/1,000 ML RTUINJ IV PRN (11:17)
[2017-06-30] MEDS ORDERED: MEASLES,MUMPS&RUBELLA VACC/PF 0.5 ML VIAL SUBCUT PRN (11:17)
[2017-06-30] MEDS ORDERED: ZOLPIDEM TARTRATE 5 MG TABLET PO PRN (11:17)
[2017-06-30 11:34] LABS: ABSOLUTE BASOPHILS # (AUTO) 0.1 10^3/uL (0.0-0.2); ABSOLUTE LYMPHOCYTES (AUTO) 1.4 10^3/uL (0.5-4.7); ABSOLUTE MONOCYTES (AUTO) 0.7 10^3/uL (0.1-1.4); ABSOLUTE NEUT (AUTO) 11.3 10^3/uL (1.7-8.2); BASOPHILS % (AUTO) 0.7 % (0-2); EOSINOPHILS % (AUTO) 0.1 % (0-6); HEMATOCRIT 33.5 % (36.0-47.0); HEMOGLOBIN 10.8 g/dL (12.0-15.5); LYMPHOCYTES % (AUTO) 10.2 % (13-45); MEAN CORPUSCULAR HEMOGLOBIN 25.1 pg (27.0-33.4); MEAN CORPUSCULAR HGB CONC 32.2 g/dL (32.0-36.0); MEAN CORPUSCULAR VOLUME 78 fl (80-97); MONOCYTES % (AUTO) 5.1 % (3-13); PLATELET COUNT 219 10^3/uL (150-450); RED BLOOD COUNT 4.29 10^6/uL (3.72-5.28); RED CELL DISTRIBUTION WIDTH 15.6 % (11.5-14.0); SEGMENTED NEUTROPHILS % (AUTO) 83.9 % (42-78); TOTAL CELLS COUNTED % (AUTO) 100 %; WHITE BLOOD COUNT 13.4 10^3/uL (4.0-10.5)
[2017-06-30] MEDS ORDERED: METHYLERGONOVINE MALEATE INJ/PF 0.2 MG/1 ML AMPULE ONE (12:29)
--- NOTE | 2017-06-30 12:46 | Delivery Summary ---
Del Sum A-C Datetime Report Generated by CPN: 06/30/2017 12:45 DELIVERY PERSONNEL DELIVERY PERSONNEL: [id number] Delivery Doctor:: Paula Patrick CNM Labor and Delivery Nurse:: Roxy Lloyd RNoutreach manager Nurse:: Jillian Monterroso RN Nursery Nurse:: Arabella Wheatley RN Production Scheduler/SILK CONDITIONER: Radha Bustillos CNA II MATERNAL INFORMATION Delivery Anesthesia: None Meds After Delivery Comment: PITOCIN 20 UNITS IM CYTOTEC 1000 MG PER RECTUM Estimated Blood Loss (ml): 300 Maternal Complications: Precipitous Labor (<3hrs) Provider Comments: of viable female infant, head, shoulders, and body delivered without difficulty, infant with spontaneous cry and respirations, to maternal abdomen, cord clamped X 2, cut free after 2 min delay, spontaneous delivery of placenta via mcintosh, appears intact, 3 VC, hemostasis acheived with external fundal massage and IM pit, iv out, cytotec prophylacticily. Mother and in stable condition, routine pp care. LABOR SUMMARY EDC: 07/02/2017 00:00 No. Babies in Womb: 1 Attempted: No Labor Anesthesia: None LABOR INFORMATION Reason for Induction: Not Applicable Onset of Labor: 06/29/2017 23:00 Complete Dilatation: 06/30/2017 10:36 Oxytocin: N/A Group B Beta Strep: Negative Antibiotics # of Doses: 0 Steroids Given: None Reason Steroids Not Administered: Not Applicable MEMBRANES Membranes Rupture Method: Artificial Rupture of Membranes: 06/30/2017 10:36 Length of Rupture (hr): 0.42 Amniotic Fluid Color: Moderate Meconium Amniotic Fluid Amount: Small Amniotic Fluid Odor: Normal STAGES OF LABOR Stage 1 hr: 11 Stage 1 min: 36 Stage 2 hr: 0 Stage 2 min: 25 Stage 3 hr: 0 Stage 3 min: 4 Total Time in Labor hr: 12 Total Time in Labor min: 5 VAGINAL DELIVERY Episiotomy: None Laceration #1: None Laceration Extension #1: N/A Laceration #2: None Laceration #3: None Laceration Repair: Not Applicable Laceration Repair Note: n/a Sponge Count Correct: N/A Sharps Count Correct: N/A CSECTION DELIVERY Primary Indication: N/A Secondary Indication: N/A CSection Incidence: N/A Labor: N/A Elective: N/A CSection Incision: N/A BABY A INFORMATION Delivery Date/Time: 06/30/2017 11:01 Method of Delivery: Vaginal Born in Route : No : N/A Forceps: N/A Vacuum Extraction: N/A Shoulder Dystocia : No PRESENTATION/POSITION BABY A Presentation: Cephalic Cephalic Presentation: Vertex Vertex Position: Right Occipital Posterior Breech Presentation: N/A PLACENTA INFORMATION BABY A Placenta Delivery Time : 06/30/2017 11:05 Placenta Method of Delivery: Spontaneous Placenta Status: Delivered SCORES BABY A Heart Rate 1 min: >100 bpm Resp Effort 1 min: Good Cry Reflex Irritability 1 min: Cough or Sneeze or Pulls Away Muscle Tone 1 min: Active Motion Color 1 min: Blue/Pale Resuscitation Effort 1 min: Tactile Stimulation SCORE 1 MIN: 8 Heart Rate 5 min: >100 bpm Resp Effort 5 min: Good Cry Reflex Irritability 5 min: Cough or Sneeze or Pulls Away Muscle Tone 5 min: Active Motion Color 5 min: Body [place], Extremities Blue Resuscitation Effort 5 min: Tactile Stimulation SCORE 5 MIN: 9 INFORMATION BABY A Gestational Age at Delivery: 39.5 Gestational Status: Full Term- 39- 40.6 Weeks Infant Outcome : Liveborn Condition : Stable Infant Sex: Female IDENTIFICATION BABY A Infant Verification Date/Time: 06/30/2017 11:25 ID Band Number: [id number] Mother's Name Verified: Yes Infant RN Verifying Infant: M JYOTI, RN Additional Verifying Personnel: [facility], RN WEIGHT/LENGTH BABY A Infant Birthweight (gm): 3290 Infant Weight (lb): 7 Infant Weight (oz): 4 Length (in): 21.00 Infant Length (cm): 53.34 CORD INFORMATION BABY A No. Cord Vessels: 3 Nuchal Cord : N/A Cord Blood Taken: Yes-For Storage (Mom's Blood type +) Infant Suction: None ASSESSMENT BABY A Infant Complications: Meconium Physical Findings at Delivery: Within Normal Limits Infant Respirations: Appears Normal Skin to Skin: Yes Curtain Mender/ALS Called : No Infant Care By: L WHEATLEY, RN Transferred To: Remains with Mother BABY B INFORMATION : N/A SIGNATURES Assignment: Imelda Padilla MD Signature: with User ID: [email or web address] : with User ID: [email or web address]
--- NOTE | 2017-06-30 14:51 | Admission Physical ---
Datetime Report Generated by CPN: 06/30/2017 14:51 CURRENT ADMISSION Hx Assessment: The History has been Reviewed and is Current Chief Complaint: Uterine Contractions Indication for Induction: Not Applicable; Maternal Diabetes Indication for Induction: Term, Intrauterine ; Active Labor; Intact Membranes; Admit Plan: Admit to Unit; Initiate Labor Protocol ALLERGIES Medication Allergies: No Medication Allergies: No Known Allergies (06/30/2017) Medication Allergies: No Known Allergies (12/02/2016) Latex: No Latex Allergies Food Allergies: Pineapples OBSTETRICAL HISTORY EDC: 07/02/2017 00:00 : 6 Para: 5 Gestational Diabetes: Yes Rh Sensitization: No Incompetent Cervix: No ELLIOT: No Infertility: No ART Treatment: No Uterine Anomaly: No IUGR: No Hx Previous C/S: No Macrosomia: No Hx Loss/Stillborn: No PIH: Yes Hx : No Placenta Previa/Abruption: No Depression/PP Depression: No PTL/PROM: No Post Hemorrhage: No Current Procedures: Ultrasound; NST Obstetrical History Comments: G1 - 2007, , boy 40 weeks 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 [id number] MEDICAL HISTORY Diabetes: Yes Diabetes Type: Gestational Diabetes Blood Transfusion: No Pulmonary Disease (Asthma, TB): No Breast Disease: No Hypertension: No Linen Manager Surgery: No Heart Disease: No Hosp/Surgery: Yes Autoimmune Disorder: No Anesthetic Complications: No Kidney Disease: No Abnormal Pap Smear: No Neuro/Epilepsy: No Psychiatric Disorders: No Other Medical Diseases: No Hepatitis/Liver Disease: No Significant Family History: No Varicosities/Phlebitis: No Trauma/Violence : No Thyroid Dysfunction: No Medical History Comments: C/Section in 2009 INFECTIOUS HISTORY Gonorrhea: No Genital Herpes: No Chlamydia: No Tuberculosis: No Syphilis: No Hepatitis: No HIV/AIDS Exposure: No Rash or Viral Illness: No HPV: No PHYSICAL EXAM General: Normal HEENT: Normal Neurologic: Normal Thyroid: Deferred Heart: Normal Lungs: Normal Breast: Normal Back: Normal Abdomen: Normal Genitourinary Exam: Normal Extremities: Normal DTRs: Normal Pelvic Type: Adequate Physical Exam Comments: pelvis proven 8lbs 6 oz Vital Signs: Reviewed VAGINAL EXAM Dilatation: 9 Effacement: 100 Station: 0 Contraction Comments: every 2 min MEMBRANES Membranes: Intact FETUS A EGA: 39.5 Monitoring: External US FHR- Baseline: 145 Variability: Minimal - Undetectable to <=5bpm Accelerations: 15X15 Decelerations: Variable FHR Category: Category I Estimated Weight (gm): 3800 Presentation: Vertex Admit Comment: Ctx since 2300 last night, ? leaking, active baby, denies vb. GBS neg GDM, ? control Active labor Anticipate PLANS FOR LABOR AND DELIVERY Labor and Delivery: None Pain Management: Epidural Feeding Preference: Formula Benefit of Breast Feed Discussed: Yes Circumcision: N/A INFORMED CONSENT Assignment: Imelda Padilla MD Signature: with User ID: [email or web address] : with User ID: [email or web address]
[2017-06-30] MEDS: IBUPROFEN 800 MG TABLET PO SCH ×2 (15:17→22:04)
--- NOTE | 2017-06-30 17:05 | EKG REPORT ---
SEVERITY:- OTHERWISE NORMAL ECG - SINUS RHYTHM ATRIAL PREMATURE COMPLEX : Confirmed by: Kat Nuñez 30-Jun-2017 17:04:53
[2017-06-30] MEDS: DOCUSATE SODIUM 100 MG CAPSULE PO SCH (17:22)
[2017-06-30] MEDS: FERROUS SULFATE 325 MG TABLET PO SCH (17:22)
[2017-06-30] MEDS: ACETAMINOPHEN WITH CODEINE #3 TABLET PO PRN (19:47)
[2017-07-01] MEDS: IBUPROFEN 800 MG TABLET PO SCH ×3 (05:29→21:17)
[2017-07-01] MEDS: ACETAMINOPHEN WITH CODEINE #3 TABLET PO PRN (06:45)
[2017-07-01 08:04] LABS: HEMATOCRIT 30.1 % (36.0-47.0); HEMOGLOBIN 9.7 g/dL (12.0-15.5); MEAN CORPUSCULAR HEMOGLOBIN 25.2 pg (27.0-33.4); MEAN CORPUSCULAR HGB CONC 32.3 g/dL (32.0-36.0); MEAN CORPUSCULAR VOLUME 78 fl (80-97); PLATELET COUNT 183 10^3/uL (150-450); RED BLOOD COUNT 3.85 10^6/uL (3.72-5.28); RED CELL DISTRIBUTION WIDTH 16.1 % (11.5-14.0); WHITE BLOOD COUNT 11.9 10^3/uL (4.0-10.5)
[2017-07-01] MEDS: SENNOSIDES/DOCUSATE 8.6-50 MG 1 EACH TABLET PO SCH (10:07)
[2017-07-01] MEDS: DOCUSATE SODIUM 100 MG CAPSULE PO SCH ×2 (10:07→17:23)
[2017-07-01] MEDS: FERROUS SULFATE 325 MG TABLET PO SCH ×2 (10:08→17:23)
[2017-07-01] MEDS: PRENATAL VITAMIN W DHA CAPSULE PO SCH (10:08)
--- NOTE | 2017-07-01 13:38 | PDOC PROGRESS REPORT ---
Subjective-OB Subjective: Post Delivery Day: 27 year old. Denies any needs at this time reports bleeding slowing, pain controlled wit current meds, tolerating diet. Physical Exam (OB) Vital Signs: Temp Pulse Resp BP Pulse Ox 98.1 F 66 16 112/76 100 07/01/17 11:35 07/01/17 11:35 07/01/17 11:35 07/01/17 11:35 07/01/17 11:35 Intake & Output 06/30/17 07/01/17 07/02/17 06:59 06:59 06:59 Intake Total 480 240 Balance 480 240 Weight 88.7 kg - Abdomen Description: Soft, Round Hernia Present: No Fundal Description: Firm, Midline Fundal Height: u/u - u/2 - Abdominal Tenderness: Nontender - Extremities Lower extremities: Vicenta's sign - neg Calf: Normal, Nontender Objective-Diagnostic Laboratory: 07/01/17 07:32 07/01/17 07:32 WBC 11.9 H RBC 3.85 Hgb 9.7 L Hct 30.1 L MCV 78 L MCH 25.2 L MCHC 32.3 RDW 16.1 H Plt Count 183 Assessment and Plan(PN) - Time Spent with Patient Time with patient: Less than 15 minutes - Disposition Anticipated Discharge: Home Within: within 24 hours
[2017-07-02] MEDS: ACETAMINOPHEN WITH CODEINE #3 TABLET PO PRN (05:41)
[2017-07-02] MEDS: IBUPROFEN 800 MG TABLET PO SCH (06:07)
[2017-07-02 08:39] VITALS: BP 114/64
[2017-07-02] MEDS: SENNOSIDES/DOCUSATE 8.6-50 MG 1 EACH TABLET PO SCH (09:15)
[2017-07-02] MEDS: FERROUS SULFATE 325 MG TABLET PO SCH (09:15)
[2017-07-02] MEDS: DOCUSATE SODIUM 100 MG CAPSULE PO SCH (09:15)
[2017-07-02] MEDS: PRENATAL VITAMIN W DHA CAPSULE PO SCH (09:15)
--- NOTE | 2017-07-02 09:41 | PDOC DISCHARGE SUMMARY ---
Final Diagnosis Discharge Date: 07/02/17 Discharge Data - Discharge Medication Prescriptions: Acetaminophen with Codeine [Tylenol #3 Tablet] 2 each PO Q4HP PRN #14 tablet PRN Reason: Docusate Sodium [Colace 100 mg Capsule] 100 mg PO BID #60 capsule Ferrous Sulfate [Feosol 325 mg Tablet] 325 mg PO BID #60 tablet Ibuprofen [Motrin 800 mg Tablet] 800 mg PO Q8 #60 tablet Home Medications: Acetaminophen with Codeine [Tylenol #3 Tablet] 2 each PO Q4HP PRN #14 tablet Docusate Sodium [Colace 100 mg Capsule] 100 mg PO BID #60 capsule 07/02/17 Ferrous Sulfate [Feosol 325 mg Tablet] 325 mg PO BID #60 tablet 07/02/17 Ibuprofen [Motrin 800 mg Tablet] 800 mg PO Q8 #60 tablet 07/02/17 Gestational Age: 39.5 Reason(s) for Admission: Onset of Labor Procedures: NST Intrapartum Procedure(s): Spontaneous Vaginal Delivery - [place] Data Baby 1 Female at 1 minute: 8 at 5 minutes: 9 Weight: 3.289 kg Home with Mother: Yes Complications: No - Diagnosis Test Laboratory: Temp Pulse Resp BP Pulse Ox 97.9 F 59 L 14 114/64 100 07/02/17 08:25 07/02/17 08:25 07/02/17 08:25 07/02/17 08:25 07/02/17 08:25 06/30/17 06/30/17 07/01/17 10:15 11:23 07:32 RBC 4.29 3.85 Hgb 10.8 L 9.7 L Hct 33.5 L 30.1 L Urine Opiates Screen NEGATIVE - Discharge information/Instructions Discharge Activity: Activity As Tolerated, Pelvic Rest, No tub bath Discharge Diet: Regular Disposition: HOME, SELF-CARE Follow up with: [facility] in: 4, Weeks
== END 2017-07-02 10:40 | disposition home or self-care (01) | DRG 775 ==
LOC: LC 10:08 → LR 10:24 → 2S 14:50
PROVIDERS: ADMIT Obstetrics & Gynecology; ATTEND Obstetrics & Gynecology
PROC: 10E0XZZ Delivery of Products of Conception, External Approach (ICD-10-PCS; principal; 2017-06-30)
PROC: 4A1HXCZ Monitoring of Products of Conception, Cardiac Rate, External Approach (ICD-10-PCS; 2017-06-30)
PROC: 3E0234Z Introduction of Serum, Toxoid and Vaccine into Muscle, Percutaneous Approach (ICD-10-PCS; 2017-07-02)
DX: O24.429 Gestational diabetes mellitus in childbirth, unspecified control (principal); O99.324 Drug use complicating childbirth; O34.219 Maternal care for unspecified type scar from previous cesarean delivery; O62.3 Precipitate labor; O77.0 Labor and delivery complicated by meconium in amniotic fluid; F12.90 Cannabis use, unspecified, uncomplicated; Z3A.39 39 weeks gestation of pregnancy; Z37.0 Single live birth; Z91.018 Allergy to other foods; Z23 Encounter for immunization
CPT/HCPCS: 36415; 80307; 81005; 85025; 85027; 86592; 86850; 86900; 86901; 90715; 93005; 93010; J2210; J2590; J3490

== ENCOUNTER 2017-08-25 16:54 | Emergency (ER) | payer MEDICAID ==
[2017-08-25] MEDS ORDERED: ACETAMINOPHEN 325 MG TABLET PO ONE (17:48)
--- NOTE | 2017-08-25 17:49 | ER Document Report ---
ED Medical Screen (RME) - General Chief Complaint: Back Pain Stated Complaint: BACK PAIN Time Seen by Provider: 08/25/17 17:41 Mode of Arrival: Ambulatory Information source: Patient Notes: 27-year-old female presents with complaints of back pain ever since her delivery in June, no injections at that time, patient denies any fevers or chills but upon arrival patient's temperature 100.2 a repeat of this temp was 101.0 patient denies feeling febrile notes flank pain back pain is worse in the past 3 days denies any urinary complaints TRAVEL OUTSIDE OF THE [place] IN LAST 30 DAYS: No - HPI Onset: Other - 3 days Onset/Duration: Persistent Quality of pain: Cramping Severity: Mild Pain Level: 1 Associated Symptoms: Body/muscle aches Exacerbated by: Denies Relieved by: Denies Similar symptoms previously: No Recently seen / treated by doctor: No - Related Data Allergies/Adverse Reactions: No Known Allergies Allergy (Verified 08/25/17 16:56) Past Medical History - Social History Cigarette use (# per day): No Chew tobacco use (# tins/day): No Frequency of alcohol use: None Drug Abuse: Marijuana Endocrine Medical History: Denies: Hx Diabetes Mellitus Type 1, Hx Diabetes Mellitus Type 2 Renal/ Medical History: Denies: Hx Peritoneal Dialysis Past Surgical History: Reports: Hx Section - 1 - Immunizations Hx Diphtheria, Pertussis, Tetanus Vaccination: Yes - 09/22/15 History of Influenza Vaccine for 03/2017 - 08/2017 Season: Refused Review of Systems - Review of Systems Notes: REVIEW OF SYSTEMS: CONSTITUTIONAL : Denies fever, chills, or sweats. Denies recent illness. EENT: Denies eye, ear, throat, or mouth pain or symptoms. Denies nasal or sinus congestion or discharge. Denies throat, tongue, or mouth swelling or difficulty swallowing. CARDIOVASCULAR: Denies chest pain. Denies palpitations or racing or irregular heart beat. Denies ankle edema. RESPIRATORY: Denies cough, cold, or chest congestion. Denies shortness of breath, difficulty breathing, or wheezing. GASTROINTESTINAL: Denies abdominal pain or distention. Denies nausea, vomiting , or diarrhea. Denies blood in vomitus, stools, or per rectum. Denies black, tarry stools. Denies constipation. GENITOURINARY: Denies difficulty urinating, painful urination, burning, frequency, blood in urine, or discharge. FEMALE GENITOURINARY: Denies vaginal bleeding, heavy or abnormal periods, irregular periods. Denies vaginal discharge or odor. MUSCULOSKELETAL: Admits bilateral flank pain SKIN: Denies rash, lesions or sores. HEMATOLOGIC : Denies easy bruising or bleeding. LYMPHATIC: Denies swollen, enlarged glands. NEUROLOGICAL: Denies confusion or altered mental status. Denies passing out or loss of consciousness. Denies dizziness or lightheadedness. Denies headache. Denies weakness or paralysis or loss of use of either side. Denies problems with gait or speech. Denies sensory loss, numbness, or tingling. Denies seizures. PSYCHIATRIC: Denies anxiety or stress. Denies depression, suicidal ideation, or homicidal ideation. ALL OTHER SYSTEMS REVIEWED AND NEGATIVE. PHYSICAL EXAMINATION: GENERAL: Well-appearing, well-nourished and in no acute distress. Patient noted to be febrile HEAD: Atraumatic, normocephalic. EYES: Pupils equal round and reactive to light, extraocular movements intact, conjunctiva are normal. ENT: Nares patent, oropharynx clear without exudates. Moist mucous membranes. NECK: Normal range of motion, supple without lymphadenopathy LUNGS: Breath sounds clear to auscultation bilaterally and equal. No wheezes rales or rhonchi. HEART: Regular rate and rhythm without murmurs ABDOMEN: Soft, nontender, nondistended abdomen. No guarding, no rebound. No masses appreciated. Female : deferred Musculoskeletal: Bilateral CVA tenderness NEUROLOGICAL: Cranial nerves grossly intact. Normal speech, normal gait. Normal sensory, motor exams PSYCH: Normal mood, normal affect. SKIN: Warm, Dry, normal turgor, no rashes or lesions noted. Dictation was performed using [email or web address] voice recognition software Physical Exam - Vital signs Vitals: Temp Pulse BP Pulse Ox 100.1 F 101 H 129/96 H 99 08/25/17 16:59 08/25/17 16:59 08/25/17 16:59 08/25/17 16:59 Course - Re-evaluation Re-evalutation: 08/25/17 19:54 Initial concern given history of back pain fever was for pyelonephritis versus an abscess epidural, patient noted that the back pain has been consistent but worsened over the past 3 days since her delivery but that it was a natural with no epidural. Therefore my suspicion for an abscess was very unlikely , patient's urinalysis is consistent with pyelonephritis, patient will be treated for such was given fluids IV antibiotics heart rate fever has improved significantly patient will be discharged home on antibiotics with extremely close follow-up After performing a Medical Screening Examination, I estimate there is LOW risk for ACUTE APPENDICITIS, BOWEL OBSTRUCTION, ACUTE CHOLECYSTITIS, PERFORATED DIVERTICULITIS, INCARCERATED HERNIA, PANCREATITIS, PELVIC INFLAMMATORY DISEASE, PERFORATED ULCER, ECTOPIC , or TUBO-OVARIAN ABSCESS, thus I consider the discharge disposition reasonable. Also, there is no evidence or peritonitis , sepsis, or toxicity. I have reevaluated this patient multiple times and no significant life threatening changes are noted. The patient and I have discussed the diagnosis and risks, and we agree with discharging home with close follow-up with the understanding that symptoms and presentations can change. We also discussed returning to the Emergency Department immediately if new or worsening symptoms occur. We have discussed the symptoms which are most concerning (e.g., bloody stool, fever, changing or worsening pain, vomiting) that necessitate immediate return. - Vital Signs Vital signs: Temp Pulse Resp BP Pulse Ox 99.3 F 83 16 127/76 H 100 08/25/17 19:36 08/25/17 19:36 08/25/17 19:36 08/25/17 19:36 08/25/17 19:36 - Laboratory Result Diagrams: 08/25/17 18:12 08/25/17 18:12 Laboratory results interpreted by me: 08/25/17 08/25/17 08/25/17 17:50 18:12 18:12 MCV 79 L MCH 26.2 L RDW 18.9 H AST 12 L Urine Protein 100 H Urine Ketones 20 H Urine Blood LARGE H Urine Nitrite POSITIVE H Ur Leukocyte Esterase LARGE H Doctor's Discharge - Discharge Clinical Impression: Pyelonephritis Fever Qualifiers: Fever type: unspecified Qualified Code(s): R50.9 - Fever, unspecified Condition: Stable Disposition: HOME, SELF-CARE Instructions: Pyelonephritis ([facility]) Additional Instructions: Follow up with your physician tomorrow for further care or return to the ED IMMEDIATELY if symptoms worsen or new concerns occur. If you cannot afford to follow up with your primary care physician a list of low cost clinics have been provided at the end of your discharge papers as well. Prescriptions: Ciprofloxacin HCl [Cipro 500 mg Tablet] 500 mg PO BID #20 tablet Metoclopramide HCl [Reglan 10 mg Tablet] 1 - 2 tab PO ASDIR PRN #25 tablet PRN Reason:
[2017-08-25 18:27] LABS: ABSOLUTE BASOPHILS # (AUTO) 0.1 10^3/uL (0.0-0.2); ABSOLUTE LYMPHOCYTES (AUTO) 1.7 10^3/uL (0.5-4.7); ABSOLUTE MONOCYTES (AUTO) 0.7 10^3/uL (0.1-1.4); ABSOLUTE NEUT (AUTO) 7.1 10^3/uL (1.7-8.2); BASOPHILS % (AUTO) 0.9 % (0-2); HEMATOCRIT 36.8 % (36.0-47.0); HEMOGLOBIN 12.2 g/dL (12.0-15.5); LYMPHOCYTES % (AUTO) 18.1 % (13-45); MEAN CORPUSCULAR HEMOGLOBIN 26.2 pg (27.0-33.4); MEAN CORPUSCULAR HGB CONC 33.1 g/dL (32.0-36.0); MEAN CORPUSCULAR VOLUME 79 fl (80-97); MONOCYTES % (AUTO) 7.3 % (3-13); PLATELET COUNT 233 10^3/uL (150-450); RED BLOOD COUNT 4.65 10^6/uL (3.72-5.28); RED CELL DISTRIBUTION WIDTH 18.9 % (11.5-14.0); SEGMENTED NEUTROPHILS % (AUTO) 73.7 % (42-78); TOTAL CELLS COUNTED % (AUTO) 100 %; WHITE BLOOD COUNT 9.6 10^3/uL (4.0-10.5)
[2017-08-25 18:32] LABS: APPEARANCE,URINE CLOUDY; BILIRUBIN,URINE NEGATIVE (NEGATIVE); COLOR,URINE YELLOW; GLUCOSE, URINE NEGATIVE (NEGATIVE); KETONES,URINE 20 mg/dL (NEGATIVE); LEUKOCYTE ESTERASE,URINE LARGE (NEGATIVE); NITRITE,URINE POSITIVE (NEGATIVE); PROTEIN,URINE 100 mg/dL (NEGATIVE); URINE SPECIFIC GRAVITY 1.012; UROBILINOGEN,URINE NEGATIVE mg/dL (<2.0)
[2017-08-25] MEDS ORDERED: KETOROLAC TROMETHAMINE INJ/PF 30 MG/1 ML SDV IV ONE (18:42)
[2017-08-25] MEDS ORDERED: CIPROFLOXACIN 400 MG/D5W RTU 400 MG/200 ML RTUPB IV ONE (18:42)
[2017-08-25 18:44] LABS: ALANINE AMINOTRANSFERASE 16 U/L (9-52); ALBUMIN 4.5 g/dL (3.5-5.0); ALKALINE PHOSPHATASE 77 U/L (38-126); ANION GAP 13 (5-19); ASPARTATE AMINO TRANSFERASE 12 U/L (14-36); BILIRUBIN,DIRECT 0.3 mg/dL (0.0-0.4); BILIRUBIN,TOTAL 0.7 mg/dL (0.2-1.3); BLOOD UREA NITROGEN 11 mg/dL (7-20); CALCIUM 9.6 mg/dL (8.4-10.2); CARBON DIOXIDE 24 mmol/L (22-30); CHLORIDE 105 mmol/L (98-107); GLUCOSE 89 mg/dL (75-110); POTASSIUM 3.6 mmol/L (3.6-5.0); SODIUM 141.7 mmol/L (137-145); TOTAL PROTEIN 8.2 g/dL (6.3-8.2)
[2017-08-25 19:42] VITALS: BP 127/76
== END 2017-08-25 20:19 | disposition home or self-care (01) ==
LOC: ER 16:54
DX: N12 Tubulo-interstitial nephritis, not specified as acute or chronic (principal); R50.9 Fever, unspecified; M54.9 Dorsalgia, unspecified; F12.10 Cannabis abuse, uncomplicated
CPT/HCPCS: 99283; 96375; 96365; 36415; 85025; 81025; 80053; 81001; J3490; J1885; J0744

== ENCOUNTER 2017-11-01 20:19 | Emergency (ER) | payer MEDICAID ==
[2017-11-01] MEDS ORDERED: KETOROLAC TROMETHAMINE INJ/PF 30 MG/1 ML SDV IV ONE (21:16)
[2017-11-01] MEDS ORDERED: METHYLPREDNISOLONE INJ 125 MG/2 ML SDV IV ONE (21:16)
[2017-11-01] MEDS ORDERED: DIPHENHYDRAMINE HCL 50 MG/ML VIAL IV ONE (21:16)
[2017-11-01] MEDS ORDERED: NORMAL SALINE 1000 ML 1,000 ML IV PRN (21:17)
[2017-11-01] MEDS ORDERED: METOCLOPRAMIDE HCL INJ/PF 10 MG/2 ML SDV IV ONE (21:17)
--- NOTE | 2017-11-01 21:23 | ER Document Report ---
ED Headache - General Chief Complaint: Headache Stated Complaint: HEADACHE Time Seen by Provider: 11/01/17 21:11 Mode of Arrival: Ambulatory Information source: Patient TRAVEL OUTSIDE OF THE [place] IN LAST 30 DAYS: No - HPI Patient complains to provider of: "Migraine" Notes: 27-year-old female with history of migraines presents emergency primary for evaluation of migraine that started 4 hours ago. Patient reports that symptoms are similar to past migraines with more intensity this time. Denies worst headache of her life. She denies taking any medications. Reports vomiting with no blood and photophobia. Any injury or trauma. She denies any fever, rash, neck pain, neck stiffness, chest pain, shortness of breath, abdominal pain , nausea, vomiting, diarrhea, or dysuria. - Related Data Allergies/Adverse Reactions: No Known Allergies Allergy (Verified 08/25/17 16:56) Past Medical History - General Information source: Patient - Social History Smoking Status: Never Smoker Family History: Reviewed & Not Pertinent Patient has suicidal ideation: No Patient has homicidal ideation: No Neurological Medical History: Reports: Hx Migraine Endocrine Medical History: Denies: Hx Diabetes Mellitus Type 1, Hx Diabetes Mellitus Type 2 Renal/ Medical History: Denies: Hx Peritoneal Dialysis Past Surgical History: Reports: Hx Section - 1 - Immunizations Hx Diphtheria, Pertussis, Tetanus Vaccination: Yes - 09/22/15 Review of Systems - Review of Systems -: Yes All other systems reviewed and negative Physical Exam - Vital signs Vitals: Temp Pulse Resp BP Pulse Ox 98.8 F 68 18 149/88 H 100 11/01/17 20:25 11/01/17 20:25 11/01/17 20:25 11/01/17 20:25 11/01/17 20:25 - Notes Notes: PHYSICAL EXAMINATION: GENERAL: Well-appearing, well-nourished and in no acute distress. HEAD: Atraumatic, normocephalic. EYES: Pupils equal round and reactive to light, extraocular movements intact, sclera anicteric, conjunctiva are normal. ENT: Nares patent, oropharynx clear without exudates. Moist mucous membranes. NECK: Normal range of motion, supple without lymphadenopathy Musculoskeletal: Normal range of motion, no pitting or edema. No cyanosis. NEUROLOGICAL: Cranial nerves grossly intact. Normal speech, normal gait. Normal sensory, motor exams PSYCH: Normal mood, normal affect. SKIN: Warm, Dry, normal turgor, no rashes or lesions noted. Course - Re-evaluation Re-evalutation: 11/01/17 21:21 With history of migraines presents to emergency department for evaluation of migraine. Patient reports that smptoms are similar to past migraines. No evidence of meningitis or intracranial hemorrhage. Given physical exam and history CT of the head is not indicated at this time. The likelihood of other entities in the differential is insufficient to justify any further testing for them. I discussed care plan at length with patient. Any and all questions were answered. Patient was given Toradol, Solu-Medrol, Benadryl, Reglan, and IV fluid and felt much better after treatment and requested to go home. Discharged home with Fioricet. Advised patient to follow-up with her PCP and take medications as instructed. I also advised her to return immediately to the emergency department for any new, worsening, or concerning symptoms as discussed. She understands and agrees with plan. 11/01/17 22:04 - Vital Signs Vital signs: Temp Pulse Resp BP Pulse Ox 98.8 F 68 18 149/88 H 100 11/01/17 20:25 11/01/17 20:25 11/01/17 20:25 11/01/17 20:25 11/01/17 20:25 Discharge - Discharge Clinical Impression: Migraine Qualifiers: Migraine type: unspecified Status migrainosus presence: without status migrainosus Intractability: not intractable Qualified Code(s): G43.909 - Migraine, unspecified, not intractable, without status migrainosus Condition: Good Disposition: HOME, SELF-CARE Instructions: Migraine Headache ([facility]) Additional Instructions: Please follow-up with PCP and take medications as instructed. Return immediately to the emergency department for any new, worsening, or concerning symptoms as discussed. Prescriptions: Butalb/Acetaminophen/Caffeine [Fioricet (50-325-40 mg) Tablet] 1 tab PO Q4HP PRN #30 tab PRN Reason:
[2017-11-01 22:26] VITALS: BP 141/90
== END 2017-11-01 22:26 | disposition home or self-care (01) ==
LOC: ER 20:19
DX: G43.909 Migraine, unspecified, not intractable, without status migrainosus (principal)
CPT/HCPCS: 99283; 96361; 96374; 96375; J1200; J2930; J1885; J2765; J7030

== ENCOUNTER 2018-08-05 07:59 | Emergency (ER) | payer SELFPAY ==
--- NOTE | 2018-08-05 09:08 | ER Document Report ---
ED GI/ - General Chief Complaint: Urinary Problem Stated Complaint: URINARY ISSUE Time Seen by Provider: 08/05/18 09:01 Mode of Arrival: Ambulatory Information source: Patient TRAVEL OUTSIDE OF THE [place] IN LAST 30 DAYS: No - HPI Patient complains to provider of: Other - foul urine smell Onset: Other - 2 weeks Timing/Duration: Persistent Quality of pain: No pain Pain Level: Denies Vaginal bleeding (Compared to normal period): None Associated symptoms: Other - Urine smell Exacerbated by: Denies Relieved by: Denies Similar symptoms previously: Yes Recently seen / treated by doctor: No - Related Data Allergies/Adverse Reactions: No Known Allergies Allergy (Verified 08/05/18 08:32) Past Medical History - General Information source: Patient - Social History Smoking Status: Never Smoker Chew tobacco use (# tins/day): No Frequency of alcohol use: Social Drug Abuse: Marijuana Lives with: Spouse/Significant other Family History: Reviewed & Not Pertinent Patient has suicidal ideation: No Patient has homicidal ideation: No - Past Medical History Cardiac Medical History: Reports: None Pulmonary Medical History: Reports: None EENT Medical History: Reports: None Neurological Medical History: Reports: Hx Migraine Endocrine Medical History: Comment Only: Hx Diabetes Mellitus Type 2 - gestational Renal/ Medical History: Reports: None Malignancy Medical History: Reports: None GI Medical History: Reports: None Musculoskeletal Medical History: Reports None Skin Medical History: Reports None Psychiatric Medical History: Reports: Hx Depression Traumatic Medical History: Reports: None Infectious Medical History: Reports: None Past Surgical History: Reports: Hx Section - 1 - Immunizations Hx Diphtheria, Pertussis, Tetanus Vaccination: Yes - 09/22/15 Review of Systems - Review of Systems Constitutional: No symptoms reported EENT: No symptoms reported Cardiovascular: No symptoms reported Respiratory: No symptoms reported Gastrointestinal: No symptoms reported Genitourinary: No symptoms reported Female Genitourinary: Other - Foul-smelling urine for 2 weeks Musculoskeletal: No symptoms reported Skin: No symptoms reported Hematologic/Lymphatic: No symptoms reported Neurological/Psychological: No symptoms reported -: Yes All other systems reviewed and negative Physical Exam - Vital signs Vitals: Temp Pulse Resp BP Pulse Ox 98.6 F 75 16 133/83 H 100 08/05/18 08:07 08/05/18 08:07 08/05/18 08:07 08/05/18 08:07 08/05/18 08:07 Interpretation: Normal - General General appearance: Appears well, Alert - HEENT Head: Normocephalic, Atraumatic Eyes: Normal Pupils: PERRL - Respiratory Respiratory status: No respiratory distress Chest status: Nontender Breath sounds: Normal Chest palpation: Normal - Cardiovascular Rhythm: Regular Heart sounds: Normal auscultation Murmur: No - Abdominal Inspection: Normal Distension: No distension Bowel sounds: Normal Tenderness: Nontender Organomegaly: No organomegaly - Genitourinary Notes: Patient denies any pain any discharge any discoloration she elected to self swab for GC and chlamydia swabs and provided a clean urine. She denies any pain anywhere. - Back Back: Normal, Nontender - Extremities General upper extremity: Normal inspection, Nontender, Normal color, Normal ROM, Normal temperature General lower extremity: Normal inspection, Nontender, Normal color, Normal ROM, Normal temperature, Normal weight bearing. No: Vicenta's sign - Neurological Neuro grossly intact: Yes Cognition: Normal Orientation: AAOx4 [place] Coma Scale Eye Opening: Spontaneous [place] Coma Scale Verbal: Oriented [place] Coma Scale Motor: Obeys Commands [place] Coma Scale Total: 15 Speech: Normal Motor strength normal: LUE, RUE, LLE, RLE Sensory: Normal - Psychological Associated symptoms: Normal affect, Normal mood - Skin Skin Temperature: Warm Skin Moisture: Dry Skin Color: Normal Course - Re-evaluation Re-evalutation: 08/05/18 21:36 She did call back in 2 hours and received the results of her GC and chlamydia which were negative. Patient was informed to follow-up with her primary doctor and to increase her fluid intake. - Vital Signs Vital signs: Temp Pulse Resp BP Pulse Ox 99.2 F 80 16 111/64 100 08/05/18 09:58 08/05/18 09:58 08/05/18 09:58 08/05/18 09:58 08/05/18 09:58 - Laboratory Laboratory results interpreted by me: 08/05/18 08:55 Urine Blood MODERATE H Urine Urobilinogen 2.0 H Ur Leukocyte Esterase TRACE H Discharge - Discharge Clinical Impression: Foul smelling urine Condition: Stable Disposition: HOME, SELF-CARE Instructions: Family Physicians / Practices Additional Instructions: You were seen today for foul-smelling urine times 2 weeks. Your urine does not show signs and symptoms of a urinary tract infection. A culture will be sent for your urine to ensure nothing grows out. Your wet mount does not show any signs or symptoms of bacterial vaginosis, yeast, or Trichomonas. Your GC and chlamydia swabs will not result for at least 2 hours. If you would like to call back at [phone] and asked for Ambrocio and I will give you the results after 2 hours. You have elected not to get treated at this time prophylactically if they do come back positive you will need to return to the ED for another visit to get your medications for GC and chlamydia. Increase your p.o. intake. Sometimes different vegetables and foods can also make your urine smell foul. Monitor what you are eating when your urine smells the worse. FOLLOW-UP CARE: If you have been referred to a physician for follow-up care, call the physicians office for an appointment as you were instructed or within the next two days. If you experience worsening or a significant change in your symptoms, notify the physician immediately or return to the Emergency Department at any time for re-evaluation. Forms: Elevated Blood Pressure
[2018-08-05 09:26] LABS: EPITHELIALS (WET MOUNT) 3+ EPITHELIALS SEEN; T.VAGINALIS (WET MOUNT) NO TRICHOMONAS SEEN; WBCS (WET MOUNT) RARE WBCS SEEN; YEAST (WET MOUNT) NO YEAST SEEN
[2018-08-05 09:30] LABS: APPEARANCE,URINE SLIGHTLY-CLOUDY; BILIRUBIN,URINE NEGATIVE (NEGATIVE); COLOR,URINE YELLOW; GLUCOSE, URINE NEGATIVE (NEGATIVE); KETONES,URINE NEGATIVE (NEGATIVE); LEUKOCYTE ESTERASE,URINE TRACE (NEGATIVE); NITRITE,URINE NEGATIVE (NEGATIVE); PROTEIN,URINE NEGATIVE (NEGATIVE)
[2018-08-05 09:59] VITALS: BP 111/64
[2018-08-05 10:54] LABS: CHLAM PCR NOT DETECTED (NOT DETECT); GON PCR NOT DETECTED (NOT DETECT)
== END 2018-08-05 10:02 | disposition home or self-care (01) ==
LOC: ER 07:59
DX: R39.89 Other symptoms and signs involving the genitourinary system (principal); F12.10 Cannabis abuse, uncomplicated
CPT/HCPCS: 81001; 81025; 87210; 87491; 87591; 99283

== ENCOUNTER 2019-04-24 17:30 | Emergency (ER) | payer SELFPAY ==
--- NOTE | 2019-04-24 17:54 | ER Document Report ---
ED Medical Screen (RME) - General Chief Complaint: Abdominal Pain Stated Complaint: ABDOMINAL PAIN Time Seen by Provider: 04/24/19 17:47 TRAVEL OUTSIDE OF THE [place] IN LAST 30 DAYS: No - HPI Notes: 04/24/19 39-year-old female to the emergency department with complaints of left lower pelvic pain that began 2 days ago. She states that she is but she is not sure how far along she is. She denies any vaginal bleeding. She does admit to nausea and vomiting a little worse this than priors. She denies any vaginal discharge or urinary complaints. She has not had a confirmed IUP with this yet I performed a brief medical screening exam on the patient and determined that th ey need further evaluation by me inside provider. Have ordered initial labs and imaging studies to aid in expediting patient's care. - Related Data Allergies/Adverse Reactions: pineapple Allergy (Verified 04/24/19 17:45) Past Medical History Neurological Medical History: Reports: Hx Migraine Endocrine Medical History: Denies: Hx Diabetes Mellitus Type 1. Comment Only: Hx Diabetes Mellitus Type 2 - gestational Renal/ Medical History: Denies: Hx Peritoneal Dialysis Psychiatric Medical History: Reports: Hx Depression Past Surgical History: Reports: Hx Section - 1 - Immunizations Hx Diphtheria, Pertussis, Tetanus Vaccination: Yes - 09/22/15 Physical Exam - Vital signs Vitals: Temp Pulse Resp BP Pulse Ox 98.9 F 82 18 116/65 100 04/24/19 17:41 04/24/19 17:41 04/24/19 17:41 04/24/19 17:41 04/24/19 17:41 Course - Vital Signs Vital signs: Temp Pulse Resp BP Pulse Ox 98.9 F 82 18 116/65 100 04/24/19 17:41 04/24/19 17:41 04/24/19 17:41 04/24/19 17:41 04/24/19 17:41 - Laboratory Result Diagrams: 04/24/19 18:06 04/24/19 18:06 Laboratory results interpreted by me: 04/24/19 04/24/19 04/24/19 18:06 18:06 18:06 Hct 35.3 L Creatinine 0.51 L Beta HCG, Quant [id number] H Urine Protein 30 H Urine Ketones 80 H Urine Blood SMALL H Leukocyte Esterase Rfl LARGE H
[2019-04-24 18:29] LABS: ABSOLUTE MONOCYTES (AUTO) 0.6 10^3/uL (0.1-1.4); ABSOLUTE NEUT (AUTO) 6.8 10^3/uL (1.7-8.2); BASOPHILS % (AUTO) 0.4 % (0-2); EOSINOPHILS % (AUTO) 0.4 % (0-6); HEMATOCRIT 35.3 % (36.0-47.0); HEMOGLOBIN 12.2 g/dL (12.0-15.5); LYMPHOCYTES % (AUTO) 28.7 % (13-45); MEAN CORPUSCULAR HEMOGLOBIN 29.5 pg (27.0-33.4); MEAN CORPUSCULAR HGB CONC 34.6 g/dL (32.0-36.0); MEAN CORPUSCULAR VOLUME 85 fl (80-97); MONOCYTES % (AUTO) 5.9 % (3-13); PLATELET COUNT 200 10^3/uL (150-450); RED BLOOD COUNT 4.14 10^6/uL (3.72-5.28); RED CELL DISTRIBUTION WIDTH 12.6 % (11.5-14.0); SEGMENTED NEUTROPHILS % (AUTO) 64.6 % (42-78); TOTAL CELLS COUNTED % (AUTO) 100 %; WHITE BLOOD COUNT 10.5 10^3/uL (4.0-10.5)
[2019-04-24 18:36] LABS: APPEARANCE,URINE CLOUDY; BILIRUBIN,URINE NEGATIVE (NEGATIVE); COLOR,URINE YELLOW; GLUCOSE, URINE NEGATIVE (NEGATIVE); KETONES,URINE 80 mg/dL (NEGATIVE); PROTEIN,URINE 30 mg/dL (NEGATIVE); URINE SPECIFIC GRAVITY 1.028; UROBILINOGEN,URINE NEGATIVE mg/dL (<2.0)
[2019-04-24 18:47] LABS: ALBUMIN 4.5 g/dL (3.5-5.0); ALKALINE PHOSPHATASE 60 U/L (38-126); ANION GAP 12 (5-19); ASPARTATE AMINO TRANSFERASE 15 U/L (14-36); BILIRUBIN,TOTAL 0.4 mg/dL (0.2-1.3); BLOOD UREA NITROGEN 13 mg/dL (7-20); CALCIUM 9.7 mg/dL (8.4-10.2); CARBON DIOXIDE 24 mmol/L (22-30); CHLORIDE 101 mmol/L (98-107); GLUCOSE 87 mg/dL (75-110); POTASSIUM 3.8 mmol/L (3.6-5.0); TOTAL PROTEIN 7.9 g/dL (6.3-8.2)
--- NOTE | 2019-04-24 19:17 | RADIOLOGY REPORT (SQ) ---
EXAM DESCRIPTION: U/S OB TRANSVAGINAL W/O DOP COMPLETED DATE/TIME: 04/24/2019 6:45 pm REASON FOR STUDY: pelvic pain, undeclared COMPARISON: None. TECHNIQUE: Transvaginal static and realtime grayscale images acquired of the pelvis. Additional kandi cted spectral and color Doppler images recorded. All images stored on PACs. bHCG: Not available. CLINICAL DATES: 9 weeks 4 days LIMITATIONS: None. FINDINGS: FETUS: Single Living intrauterine . ULTRASOUND EGA: 10 weeks 3 days ULTRASOUND CHARLES: 11/17/2019 EFW: Not applicable less than 20 weeks. CRL: 3.6 cm FHR: 173 beats per minute. SURVEY: No visualized anomalies. AMNIOTIC FLUID: Adequate amount. PLACENTA: Not yet developed due to early gestation. SUBCHORIONIC BLEED: No SIZE OF BLEED: Not applicable. UTERUS: No masses. No anomalies. CERVICAL LENGTH: 2.5 cm Closed. RIGHT ADNEXA: Normal ovary with normal vascular flow. No adnexal free fluid. No adnexal masses. LEFT ADNEXA: Normal ovary with normal vascular flow. No adnexal free fluid. No adnexal masses. FREE FLUID: None. OTHER: No other significant finding. IMPRESSION: LIVING INTRAUTERINE . EGA 10 weeks 3 days Trimester of : First trimester - 0 to 13 weeks. TECHNICAL DOCUMENTATION: JOB ID: [id number] 2010 [employer]- All Rights Reserved Reading location - IP/workstation name: [email or web address]
[2019-04-24] MEDS ORDERED: PROMETHAZINE HCL 25 MG TABLET PO ONE (19:56)
--- NOTE | 2019-04-24 19:58 | ER Document Report ---
ED General - General Chief Complaint: Abdominal Pain Stated Complaint: ABDOMINAL PAIN Time Seen by Provider: 04/24/19 17:47 Primary Care Provider: [facility] [Provider Group] - Follow up in 1 week Notes: Patient is a G8, P7 29-year-old female who is approximately 10 weeks who presents emergency department with abdominal pain. Patient states that her abdominal pain has been going on for the past week. Patient denies any vaginal discharge, vaginal bleeding, dysuria, or any other symptoms. Patient states that she has some nausea noted. Patient states that she has had some nausea and vomiting, but has not vomited today. She has not seen an [facility] since she found out she was . Denies any fever or body aches. TRAVEL OUTSIDE OF THE [place] IN LAST 30 DAYS: No - Related Data Allergies/Adverse Reactions: pineapple Allergy (Verified 04/24/19 17:45) Past Medical History - Social History Smoking Status: Never Smoker Chew tobacco use (# tins/day): No Frequency of alcohol use: None Drug Abuse: None Family History: Reviewed & Not Pertinent Patient has suicidal ideation: No Patient has homicidal ideation: No Neurological Medical History: Reports: Hx Migraine Endocrine Medical History: Denies: Hx Diabetes Mellitus Type 1. Comment Only: Hx Diabetes Mellitus Type 2 - gestational Renal/ Medical History: Denies: Hx Peritoneal Dialysis Psychiatric Medical History: Reports: Hx Depression Past Surgical History: Reports: Hx Section - 1 - Immunizations Hx Diphtheria, Pertussis, Tetanus Vaccination: Yes - 09/22/15 Review of Systems - Review of Systems Notes: REVIEW OF SYSTEMS: CONSTITUTIONAL : Denies recent illness. Denies recent unintentional weight loss. Denies fever, chills, or sweats. EENT: Denies eye, ear, throat, or mouth pain, discharge, or symptoms. Denies nasal or sinus congestion. CARDIOVASCULAR: Denies chest pain. RESPIRATORY: Denies shortness of breath, cough, congestion, difficulty breathing, or wheezing. GASTROINTESTINAL: See HPI. GENITOURINARY: Denies difficulty urinating, burning, blood in urine, urgency or frequency. FEMALE GENITOURINARY: See HPI. MUSCULOSKELETAL: Denies neck and back pain. Denies joint pain or swelling. SKIN: Denies rash, itchiness, or lesions HEMATOLOGIC : Denies easy bruising or bleeding. LYMPHATIC: Denies swollen, painful, enlarged glands. NEUROLOGICAL: Denies no numbness or tingling denies weakness. Denies headache. Denies altered mental status. Denies alteration in speech. PSYCHIATRIC: Denies stress, anxiety, alteration in sleep patterns, or depression. All other systems reviewed and negative. Physical Exam - Vital signs Vitals: Temp Pulse Resp BP Pulse Ox 98.9 F 82 18 116/65 100 04/24/19 17:41 04/24/19 17:41 04/24/19 17:41 04/24/19 17:41 04/24/19 17:41 - Notes Notes: PHYSICAL EXAMINATION: GENERAL: Appears well, healthy, well-nourished, no acute distress. HEAD: Normocephalic, atraumatic. EYES: PERRL, conjunctiva normal, all extraocular movements intact, sclera nonicteric ENT: Moist mucous membranes. NECK: Supple, no noticeable swelling, redness, rash. Normal range of motion. LUNGS: Equal breath sounds bilaterally and clear to auscultation. No wheezes rales or rhonchi. CARDIOVASCULAR: S1-S2, regular rate, regular rhythm. Radial pulses 2+, normal. ABDOMEN: Normoactive bowel sounds. Soft, nontender, no guarding, no rebound tenderness, and no masses palpated. EXTREMITIES: Normal strength and range of motion, no pitting or edema. No cyanosis. NEUROLOGICAL: Moves all extremities upon command. Strength 5/5 in all extremities. PSYCH: Normal mood, normal affect. SKIN: Warm, dry. No rash, lesions, ulcerations noted. Normal skin turgor. Course - Re-evaluation Re-evalutation: 04/24/19 21:22 Pelvic exam done with MARIA TERESA Blanco at bedside. Patient had cervical motion tenderness noted. Green Purulent discharge noted. Left adenexal tenderness noted. 04/24/19 22:26 Hematology is unremarkable. Chemistries show quantitative hCG of 138,820, consistent with her noted on transvaginal ultrasound. No tuboovarian abcess noted on ultrasound. I have a very low suspicion for diverticulitis or appendicitis. Urinalysis shows a large amount of leukocytes in her urine. She will be treated for a urinary tract infection with Keflex. Patient has 3+ epithelial cells and 4+ bacteria noted on her wet mount. She also has 4+ WBCs. I will place her on Flagyl vaginally. I will also refer her to [facility]. Due to the patient having such cervical motion tenderness and the patient cannot have doxycycline due to her being , she will receive a 7-day course of Flagyl. I instructed her on very close follow-up with [facility]. She is in agreement with this plan. Follow-up precautions were given. Verbal discharge instructions were given to the patient. They verbalized understanding. They are stable for discharge. - Vital Signs Vital signs: Temp Pulse Resp BP Pulse Ox 98.9 F 89 16 121/57 L 100 04/24/19 21:56 04/24/19 21:56 04/24/19 21:56 04/24/19 21:56 04/24/19 21:56 - Laboratory Result Diagrams: 04/24/19 18:06 04/24/19 18:06 Laboratory results interpreted by me: 04/24/19 04/24/19 04/24/19 18:06 18:06 18:06 Hct 35.3 L Creatinine 0.51 L Beta HCG, Quant [id number] H Urine Protein 30 H Urine Ketones 80 H Urine Blood SMALL H Leukocyte Esterase Rfl LARGE H Discharge - Discharge Clinical Impression: Bacterial vaginosis, Pelvic inflammatory disease Qualifiers: Weeks of gestation: 10 weeks Qualified Code(s): Z3A.10 - 10 weeks gestation of Condition: Stable Disposition: HOME, SELF-CARE Additional Instructions: You were seen today in the emergency department for abdominal pain. You have a pelvic infection. You are being treated with antibiotics to help with your p elvic infection. You are also being treated for urinary tract infection. Please make sure you follow-up with [facility] in 1 week. Please do not have sex for the next week, as the infection can get passed back to you. If you develop a fever, body aches, or have any worsening symptoms, please return to the emergency department. Prescriptions: Metronidazole [Metrogel 0.75% Vaginal Gel] 5 applic VG QHS #7 tube Cephalexin [Keflex] 500 mg PO BID #14 capsule Promethazine HCl [Phenergan 25 mg Tablet] 1 - 2 tab PO Q6H PRN #15 tablet PRN Reason: Forms: Return to Work Referrals: [facility] [Provider Group] - Follow up in 1 week
[2019-04-24 20:54] LABS: BACTERIA (WET MOUNT) 4+ BACTERIA SEEN; EPITHELIALS (WET MOUNT) 3+ EPITHELIALS SEEN; T.VAGINALIS (WET MOUNT) NO TRICHOMONAS SEEN; WBCS (WET MOUNT) 4+ WBCS SEEN; YEAST (WET MOUNT) NO YEAST SEEN
[2019-04-24] MEDS ORDERED: AZITHROMYCIN 250 MG TABLET PO ONE (21:21)
[2019-04-24] MEDS ORDERED: LIDOCAINE 1% INJ-PF (10 MG/ML) 30 ML SDV INJ ONE (21:21)
[2019-04-24] MEDS ORDERED: CEFTRIAXONE INJ 250 MG VIAL IM ONE (21:21)
[2019-04-24 21:57] VITALS: BP 121/57
[2019-04-24 22:21] LABS: CHLAM PCR NOT DETECTED (NOT DETECT)
== END 2019-04-24 22:07 | disposition home or self-care (01) ==
LOC: ER 17:30
DX: O23.591 Infection of other part of genital tract in pregnancy, first trimester (principal); B96.89 Other specified bacterial agents as the cause of diseases classified elsewhere; R10.9 Unspecified abdominal pain; R11.0 Nausea; Z3A.10 10 weeks gestation of pregnancy
CPT/HCPCS: 86900; 86901; 36415; 87086; 87210; 84702; 85025; 80053; 81001; 87491; 87591; 76817; J3490; J0696; 96372; 96374; 99284

== ENCOUNTER 2019-08-08 08:42 | Emergency (ER) | payer MEDICAID ==
[2019-08-08] MEDS ORDERED: ACETAMINOPHEN 325 MG TABLET PO ONE (08:56)
[2019-08-08] MEDS ORDERED: IPRATROPIUM/ALBUTEROL 0.5-2.5 MG/3 ML AMPUL NEB ONE (10:04)
[2019-08-08] MEDS ORDERED: NORMAL SALINE 1000 ML 1,000 ML IV ONE ×2 (10:04→12:48)
--- NOTE | 2019-08-08 10:06 | ER Document Report ---
ED Medical Screen (RME) - General Chief Complaint: Congestion Stated Complaint: COUGH,CONGESTION,BODY PAIN Time Seen by Provider: 08/08/19 10:00 Primary Care Provider: LING WHIPPLE MD [Primary Care Provider] - Follow up as needed Notes: HPI: 27-year-old female who is 26 weeks presenting for upper respiratory symptoms over the last 2 to 3 days. Patient was recently here with her daughter who tested negative for flu and RSV. Patient developed cough and shortness of breath the following day. Low-grade fevers at home. Denies abdominal pain vaginal discharge or bleeding. Has had slight nausea with 1-2 episodes of vomiting. Patient does report increased elevated heart rate. I have greeted and performed a rapid initial assessment of this patient. A comprehensive ED assessment and evaluation of the patient, analysis of test results and completion of the medical decision making process will be conducted by additional ED providers PHYSICAL EXAMINATION: GENERAL: Well-appearing, well-nourished and in mild acute distress. HEAD: Atraumatic, normocephalic. EYES: sclera anicteric, conjunctiva are normal. ENT: Moist mucous membranes. NECK: Normal range of motion LUNGS: Normal work of breathing, clear to auscultation but spastic cough is noted HEART: 2+ radial pulses bilaterally, tachycardic ABD: limited by positioning for exam in triage. Gravid uterus palpable EXTREMITIES: no pitting or edema. No cyanosis. NEUROLOGICAL: No focal neurological deficits. Moves all extremities spontaneously and on command. PSYCH: Normal mood, normal affect. SKIN: Warm, Dry, normal turgor, no rashes or lesions noted. TRAVEL OUTSIDE OF THE [place] IN LAST 30 DAYS: No - Related Data Allergies/Adverse Reactions: No Known Drug Allergies Allergy (Verified 08/08/19 09:55) pineapple Allergy (Verified 08/08/19 09:55) Past Medical History Neurological Medical History: Reports: Hx Migraine Endocrine Medical History: Denies: Hx Diabetes Mellitus Type 1. Comment Only: Hx Diabetes Mellitus Type 2 - gestational Renal/ Medical History: Denies: Hx Peritoneal Dialysis Psychiatric Medical History: Reports: Hx Depression Past Surgical History: Reports: Hx Section - 1 - Immunizations Hx Diphtheria, Pertussis, Tetanus Vaccination: Yes - 09/22/15 Physical Exam - Vital signs Vitals: Temp Pulse Resp BP Pulse Ox 100.1 F 126 H 18 127/70 H 99 02/26/20 08:53 08/08/19 08:53 08/08/19 08:53 08/08/19 08:53 08/08/19 08:53 Course - Vital Signs Vital signs: Temp Pulse Resp BP Pulse Ox 100.1 F 126 H 18 127/70 H 99 08/08/19 08:53 08/08/19 08:53 08/08/19 08:53 08/08/19 08:53 08/08/19 08:53 Doctor's Discharge - Discharge Referrals: LING WHIPPLE MD [Primary Care Provider] - Follow up as needed
[2019-08-08 10:29] LABS: ABSOLUTE BASOPHILS # (AUTO) 0.1 10^3/uL (0.0-0.2); ABSOLUTE EOSINOPHILS # (AUTO) 0.1 10^3/uL (0.0-0.6); ABSOLUTE LYMPHOCYTES (AUTO) 0.8 10^3/uL (0.5-4.7); ABSOLUTE MONOCYTES (AUTO) 1.1 10^3/uL (0.1-1.4); EOSINOPHILS % (AUTO) 1.8 % (0-6); HEMATOCRIT 33.8 % (36.0-47.0); HEMOGLOBIN 11.9 g/dL (12.0-15.5); LYMPHOCYTES % (AUTO) 9.2 % (13-45); MEAN CORPUSCULAR HEMOGLOBIN 30.1 pg (27.0-33.4); MEAN CORPUSCULAR HGB CONC 35.3 g/dL (32.0-36.0); MEAN CORPUSCULAR VOLUME 85 fl (80-97); MONOCYTES % (AUTO) 13.8 % (3-13); PLATELET COUNT 193 10^3/uL (150-450); RED BLOOD COUNT 3.97 10^6/uL (3.72-5.28); RED CELL DISTRIBUTION WIDTH 13.4 % (11.5-14.0); SEGMENTED NEUTROPHILS % (AUTO) 74.2 % (42-78); TOTAL CELLS COUNTED % (AUTO) 100 %; WHITE BLOOD COUNT 8.1 10^3/uL (4.0-10.5)
[2019-08-08 10:48] LABS: ALBUMIN 3.8 g/dL (3.5-5.0); ALKALINE PHOSPHATASE 97 U/L (38-126); ANION GAP 8 (5-19); ASPARTATE AMINO TRANSFERASE 23 U/L (14-36); BILIRUBIN,TOTAL 0.3 mg/dL (0.2-1.3); BLOOD UREA NITROGEN 8 mg/dL (7-20); CALCIUM 9.1 mg/dL (8.4-10.2); CARBON DIOXIDE 23 mmol/L (22-30); CHLORIDE 105 mmol/L (98-107); GLUCOSE 86 mg/dL (75-110); POTASSIUM 4.1 mmol/L (3.6-5.0); TOTAL PROTEIN 7.1 g/dL (6.3-8.2)
[2019-08-08 10:52] LABS: A TYPE INFLUENZA AG NEGATIVE (NEGATIVE); B INFLUENZA AG NEGATIVE (NEGATIVE)
--- NOTE | 2019-08-08 11:01 | RADIOLOGY REPORT (SQ) ---
EXAM DESCRIPTION: CHEST 2 VIEWS COMPLETED DATE/TIME: 08/08/2019 10:50 am REASON FOR STUDY: cough - pt 26 wk preg COMPARISON: None. EXAM PARAMETERS: NUMBER OF VIEWS: two views TECHNIQUE: Digital Frontal and Lateral radiographic views of the chest acquired. RADIATION DOSE: NA LIMITATIONS: none FINDINGS: LUNGS AND PLEURA: No opacities, masses or pneumothorax. No pleural effusion. MEDIASTINUM AND HILAR STRUCTURES: No masses or contour abnormalities. HEART AND VASCULAR STRUCTURES: Heart normal size. No evidence for failure. BONES: No acute findings. HARDWARE: None in the chest. OTHER: No other significant finding. IMPRESSION: NO ACUTE RADIOGRAPHIC FINDING IN THE CHEST. TECHNICAL DOCUMENTATION: JOB ID: [id number] 2010 [employer]- All Rights Reserved Reading location - IP/workstation name: [email or web address]
--- NOTE | 2019-08-08 12:35 | ER Document Report ---
ED General - General Chief Complaint: Flu Symptoms Stated Complaint: COUGH,CONGESTION,BODY PAIN Time Seen by Provider: 08/08/19 10:00 Primary Care Provider: DEVONTE CROWE MD [ACTIVE PROVISIONAL STAFF] - 08/13/19 TRAVEL OUTSIDE OF THE [place] IN LAST 30 DAYS: No - HPI Notes: 29-year-old female G8, P7 and is currently 26 weeks to the emergency department with complaints of cough, nausea, vomiting, body aches, shortness of breath that began on Tuesday and has gotten progressively worse. She missed a fevers and chills. She states that her child was seen here earlier in the week and diagnosed with an upper respiratory infection. She states that [facility] She denies any abdominal pain or vaginal bleeding. She states that she feels pretty fatigued as well. Nausea and vomiting has gotten worse in the past 24 hours and she has had trouble keeping anything down. - Related Data Allergies/Adverse Reactions: No Known Drug Allergies Allergy (Verified 08/08/19 09:55) pineapple Allergy (Verified 08/08/19 09:55) Home Medications: vit 1 tab PO daily (OTC) Past Medical History - General Information source: Patient, Relative - Social History Smoking Status: Never Smoker Chew tobacco use (# tins/day): No Frequency of alcohol use: None Drug Abuse: None Lives with: Spouse/Significant other Family History: Reviewed & Not Pertinent Patient has suicidal ideation: No Patient has homicidal ideation: No Neurological Medical History: Reports: Hx Migraine Endocrine Medical History: Denies: Hx Diabetes Mellitus Type 1. Comment Only: Hx Diabetes Mellitus Type 2 - gestational Renal/ Medical History: Denies: Hx Peritoneal Dialysis Psychiatric Medical History: Reports: Hx Depression Past Surgical History: Reports: Hx Section - 1 - Immunizations Hx Diphtheria, Pertussis, Tetanus Vaccination: Yes - 09/22/15 Review of Systems - Review of Systems Constitutional: Chills, Fever, Malaise EENT: Nose congestion Cardiovascular: denies: Chest pain, Palpitations, Heart racing, Dizziness, Light headed Respiratory: Cough, Short of breath Gastrointestinal: Nausea, Vomiting. denies: Abdominal pain, Diarrhea Genitourinary: denies: Frequency, Flank pain, Hematuria Female Genitourinary: See HPI, Musculoskeletal: No symptoms reported Skin: No symptoms reported Hematologic/Lymphatic: No symptoms reported Neurological/Psychological: No symptoms reported -: Yes All other systems reviewed and negative Physical Exam - Vital signs Vitals: Temp Pulse Resp BP Pulse Ox 100.1 F 126 H 18 127/70 H 99 08/08/19 08:53 08/08/19 08:53 08/08/19 08:53 08/08/19 08:53 08/08/19 08:53 Interpretation: Tachycardic, Tachypneic, Febrile - General General appearance: Appears well, Alert - HEENT Head: Normocephalic, Atraumatic Eyes: Normal Pupils: PERRL Ears: Normal External canal: Normal Tympanic membrane: Normal Sinus: Normal Nasal: Clear rhinorrhea Mouth/Lips: Normal Mucous membranes: Normal Pharynx: Normal. No: Erythema, Exudate, Uvular edema, Potential airway comprom. Neck: Normal, Supple. No: Lymphadenopathy, Meningismus - Respiratory Respiratory status: Tachypnea - rate of 29 Chest status: Nontender. No: Accessory muscle use Breath sounds: Normal. No: Decreased air movement, Rales, Rhonchi, Wheezing Chest palpation: Normal - Cardiovascular Rhythm: Regular Heart sounds: Normal auscultation Murmur: No - Abdominal Inspection: Gravid female - fundus above umbilicus Distension: No distension Bowel sounds: Normal Tenderness: Nontender. No: Tender, McBurney's point, Lloyd's sign, Guarding, Rebound Organomegaly: No organomegaly - Back Back: Normal, Nontender - Neurological Neuro grossly intact: Yes Cognition: Normal Orientation: AAOx4 [place] Coma Scale Eye Opening: Spontaneous [place] Coma Scale Verbal: Oriented [place] Coma Scale Motor: Obeys Commands [place] Coma Scale Total: 15 Speech: Normal Cranial nerves: Normal. No: Facial palsy, Forehead sparing, Gaze palsy, Sensory deficit, Tongue deviation Cerebellar coordination: Normal. 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 No: Pronator drift Sensory: Normal - Psychological Associated symptoms: Normal affect, Normal mood - Skin Skin Temperature: Warm Skin Moisture: Dry Skin Color: Normal Course - Re-evaluation Re-evalutation: 08/08/[address] Gordon as patient continues to be tachycardic and tachypneic despite a reassuring CTA and two liters of fluids. He agrees that if patient is amenable that it may be prudent to keep her overnight for observation and more breathing treatments and fluids. I discussed this with patient and she does not want to be admitted. I discussed the patient with OB on-call to include low TSH level. Dr. Crowe, OB on-call, states to start Tamiflu, Mucinex, albuterol, propanolol 5 mg. We discussed admitting the patient but again patient does not want to stay for admission. Dr. Crowe will come down and see the patient but she states that the patient can also follow-up in the office on Tuesday. Patient is amenable to this plan. Impression Flu like symptoms, low TSH concerning for hyperthyroidism in . Patient declined admission, OB did see patient and we devised an outpatient therapy plan. - Vital Signs Vital signs: Temp Pulse Resp BP Pulse Ox 99.8 F 114 H 26 H 125/76 99 08/08/19 18:04 08/08/19 18:04 08/08/19 18:04 08/08/19 18:04 08/08/19 18:04 - Laboratory Result Diagrams: 08/08/19 10:10 08/08/19 10:10 Laboratory results interpreted by me: 08/08/19 08/08/19 08/08/19 10:10 10:10 10:10 Hgb 11.9 L Hct 33.8 L Lymph % (Auto) 9.2 L Starke % (Auto) 13.8 H Sodium 135.8 L Creatinine 0.49 L TSH 0.12 L - Diagnostic Test Radiology reviewed: Image reviewed, Reports reviewed Discharge - Discharge Clinical Impression: Influenza, Low TSH level Nausea & vomiting Qualifiers: Vomiting type: unspecified Vomiting Intractability: non-intractable Qualified Code(s): R11.2 - Nausea with vomiting, unspecified Condition: Stable Disposition: HOME, SELF-CARE Instructions: Influenza ([facility]) Additional Instructions: PUSH FLUIDS. RETURN IMMEDIATELY IF WORSENING. FOLLOW UP WITH OBGYN ON TUESDAY WITHOUT FAIL. YOUR THYROID FUNCTION WAS LOW TODAY, SO YOU WILL BE STARTED ON PROPANOLOL. YOU HAVE ALSO BEEN WRITTEN FOR ALBUTEROL, TAMIFLU, DICLEGIS, AND MUCINEX. Prescriptions: Albuterol Sulfate [Albuterol Sulfate Hfa] 2 puff IH Q4H #1 hfa.aer.ad Doxylamine Succinate/Vit B6 [Diclegis Dr 10-10 mg Tablet] 1 each PO BID #20 tablet. Propranolol HCl [Inderal 10 mg Tablet] 5 mg PO DAILY #30 tablet Guaifenesin [Mucinex] 1,200 mg PO Q12 #10 tab.er.12h Oseltamivir Phosphate [Tamiflu 75 mg Capsule] 75 mg PO BID #10 capsule Forms: Return to Work Referrals: DEVONTE CROWE MD [ACTIVE PROVISIONAL STAFF] - 08/13/19
--- NOTE | 2019-08-08 16:35 | RADIOLOGY REPORT (SQ) ---
EXAM DESCRIPTION: CTA CHEST COMPLETED DATE/TIME: 08/08/2019 4:20 pm REASON FOR STUDY: SOB, tachycardiac, tachypnea, COMPARISON: Chest x-ray done earlier the same day. TECHNIQUE: CT scan of the chest performed using helical scanning technique with dynamic intravenous contrast injection. Images reviewed with lung, soft tissue and bone windows. Reconstructed coronal and sagittal MPR images reviewed. Additional 3 dimensional post-processing performed to develop Maximal Intensity Projection images (SD P). All images stored on PACS. All CT scanners at this facility use dose modulation, iterative reconstruction, and/or weight based d osing when appropriate to reduce radiation dose to as low as reasonably achievable (ALARA). [facility]: Dose Right [facility]: CareDose [facility]: Dose Right [facility]: Teradose 4D [facility]: Confidex CONTRAST TYPE AND DOSE: contrast/concentration: Isovue 350.00 mg/ml; Total Contrast Delivered: 64.0 ml; Total Saline Delivered: 74.8 ml Contrast bolus optimized for the pulmonary arteries. Not diagnostic for the aorta. RENAL FUNCTION: BUN 8, creatinine 0.49 RADIATION DOSE: CT Rad equipment meets quality standard of care and radiation dose reduction techniq ues were employed. CTDIvol: 16.5 - 19.9 mGy. DLP: 613 mGy-cm. . LIMITATIONS: None. FINDINGS: LUNGS AND PLEURA: No masses, infiltrates, or pneumothorax. No pleural effusions or pleura l calcifications. AORTA AND GREAT VESSELS: No aneurysm. Contrast bolus not optimized for the aorta. HEART: No pericardial effusion. No significant coronary artery calcifications. PULMONARY ARTERIES: No emboli visualized in the main pulmonary arteries or the segmental branches. HILAR AND MEDIASTINAL STRUCTURES: No identified masses or abnormal nodes. HARDWARE: None in the chest. UPPER ABDOMEN: No significant findings. Limited exam. THYROID AND OTHER SOFT TISSUES: No masses. No adenopathy. BONES: No acute or significant finding. 3D MIPS: Confirm above findings. OTHER: No other significant finding. IMPRESSION: NORMAL CTA OF THE CHEST. NO PULMONARY EMBOLI. COMMENT: Quality ID # [id number]: Final reports with documentation of one or more dose reduction techniques (e.g., Automated exposure control, adjustment of the mA and/or kV according to patient size, use of iterative reconstruction technique) TECHNICAL DOCUMENTATION: JOB ID: [id number] 2010 [employer]- All Rights Reserved Reading location - IP/workstation name: [email or web address]
--- NOTE | 2019-08-08 19:37 | PDOC CONSULTATION ---
Consultation Consult Date: 08/08/19 Provider Consulted: DEVONTE KHAN Consult reason:: Anisa in ED requested consult d/t 26 wks Preg and cough/sob History of Present Illness Admission Date/PCP: LING WHIPPLE MD Patient complains of: Cough -productive of clear to pale yellow sputum. History of Present Illness: OZZY CANO is a 29 year old female who is 26 wks . SHe came to ED with symptoms of cough, achy and fever. She denies rinorrhea, COOPER, N/v, Chest pain but did say SOB when coughing. She did get eval in ED and Flu was negative Chest x-ray and CT were both negative. O2 Sat in ED normal. Past Medical History LMP: 26 wk Medical History: None Cardiac Medical History: Reports: None Pulmonary Medical History: Denies: None, Asthma, Bronchitis, Chronic Obstructive Pulmonary Disease (COPD), Intubation, Pneumonia, Respiratory Failure, Sleep Apnea, Tuberculosis, Other Neurological Medical History: Reports: Migraine Endocrine Medical History: Denies: Diabetes Mellitus Type 1 Comment Only: Diabetes Mellitus Type 2 - gestational Psychiatric Medical History: Reports: Depression Social History Lives with: Spouse/Significant other Smoking Status: Never Smoker Electronic Cigarette use?: No Family History Family History: Reviewed & Not Pertinent Parental Family History Reviewed: Yes Children Family History Reviewed: Yes Sibling(s) Family History Reviewed.: Yes Medication/Allergy Home Medications: Acetaminophen with Codeine [Tylenol #3 Tablet] 2 each PO Q4HP PRN #14 tablet 07/02/17 Ibuprofen [Motrin 800 mg Tablet] 800 mg PO Q8 #60 tablet 07/02/17 Norethindrone [Raya-Be] 0.35 mg PO DAILY 08/05/18 Cephalexin [Keflex] 500 mg PO BID #14 capsule 04/24/19 Metronidazole [Metrogel 0.75% Vaginal Gel] 5 applic VG QHS #7 tube 04/24/19 Promethazine HCl [Phenergan 25 mg Tablet] 1 - 2 tab PO Q6H PRN #15 tablet 04/24/19 Albuterol Sulfate [Albuterol Sulfate Hfa] 2 puff IH Q4H #1 hfa.aer.ad 08/08/19 Doxylamine Succinate/Vit B6 [[place] 10-10 mg Tablet] 1 each PO BID #20 tablet. 08/08/19 Guaifenesin [Mucinex] 1,200 mg PO Q12 #10 tab.er.12h 08/08/19 Oseltamivir Phosphate [Tamiflu 75 mg Capsule] 75 mg PO BID #10 capsule 08/08/19 Propranolol HCl [Inderal 10 mg Tablet] 5 mg PO DAILY #30 tablet 08/08/19 Allergies/Adverse Reactions: No Known Drug Allergies Allergy (Verified 08/08/19 09:55) pineapple Allergy (Verified 08/08/19 09:55) Physical Exam - Physical Exam Vital Signs: Temp Pulse Resp BP Pulse Ox 99.8 F 114 H 26 H 125/76 99 08/08/19 18:04 08/08/19 18:04 08/08/19 18:04 08/08/19 18:04 08/08/19 18:04 Intake & Output 08/07/19 08/08/19 08/09/19 06:59 06:59 06:59 Intake Total 1999 Balance 1999 Weight 88.6 kg General appearance: PRESENT: no acute distress, cooperative Respiratory exam: PRESENT: clear to auscultation bertrand - NO wheezing, rales or rhonchi. Rate at bedside 18 Cardiovascular exam: PRESENT: RRR, +S1, +S2 GI/Abdominal exam: PRESENT: normal bowel sounds - Gravid uterus, soft Skin exam: PRESENT: dry - no rash, warm Result Laboratory Results: 08/08/19 10:10 08/08/19 10:10 08/08/19 08/08/19 08/08/19 10:10 10:10 10:10 WBC 8.1 RBC 3.97 Hgb 11.9 L Hct 33.8 L MCV 85 MCH 30.1 MCHC 35.3 RDW 13.4 Plt Count 193 Seg Neutrophils % 74.2 Sodium 135.8 L Potassium 4.1 Chloride 105 Carbon Dioxide 23 Anion Gap 8 BUN 8 Creatinine 0.49 L Est GFR ( Amer) > 60 Glucose 86 Calcium 9.1 Total Bilirubin 0.3 AST 23 Alkaline Phosphatase 97 Total Protein 7.1 Albumin 3.8 TSH 0.12 L Impressions: Chest X-Ray 08/08/19 10:04 IMPRESSION: NO ACUTE RADIOGRAPHIC FINDING IN THE CHEST. Chest/Abdomen CTA 08/08/19 15:00 IMPRESSION: NORMAL CTA OF THE CHEST. NO PULMONARY EMBOLI. Assessment & Plan - Diagnosis (1) Cough Is this a current diagnosis for this admission?: Yes Plan: FLu negative but patient did not get flu shot so I would recommend tamiflu course anyway CT and CXR negative. Mucinex prn Hydration encouraged Return for worsening condition (2) Qualifiers: Weeks of gestation: 26 weeks Qualified Code(s): Z3A.26 - 26 weeks gestation of Is this a current diagnosis for this admission?: Yes Plan: Good FM Continue PNV Keep appt in 5 days at office or return to ED if condition worsens
[2019-08-08 19:46] VITALS: BP 134/79
== END 2019-08-08 19:49 | disposition home or self-care (01) ==
LOC: ER 08:42
DX: O98.512 Other viral diseases complicating pregnancy, second trimester (principal); J11.1 Influenza due to unidentified influenza virus with other respiratory manifestations; O26.892 Other specified pregnancy related conditions, second trimester; R05 Cough; R09.81 Nasal congestion; M79.10 Myalgia, unspecified site; R00.0 Tachycardia, unspecified; R06.82 Tachypnea, not elsewhere classified; O21.9 Vomiting of pregnancy, unspecified; O24.419 Gestational diabetes mellitus in pregnancy, unspecified control; Z3A.26 26 weeks gestation of pregnancy; Z88.8 Allergy status to other drugs, medicaments and biological substances
CPT/HCPCS: 94640; 99284; 96360; 96361; 36415; 84443; 85025; 80053; 87804; 71046; 71275; J3490; J7030; J7620

== ENCOUNTER 2019-09-19 18:52 | Outpatient (CLI) | payer MEDICAID ==
[2019-09-19 19:36] LABS: APPEARANCE,URINE CLOUDY; BILIRUBIN,URINE NEGATIVE (NEGATIVE); CALCIUM OXALATE CRYSTALS,URINE MODERATE /HPF; COLOR,URINE YELLOW; GLUCOSE, URINE NEGATIVE (NEGATIVE); KETONES,URINE NEGATIVE (NEGATIVE); LEUKOCYTE ESTERASE,URINE LARGE (NEGATIVE); NITRITE,URINE NEGATIVE (NEGATIVE); PROTEIN,URINE 30 mg/dL (NEGATIVE); URINE SPECIFIC GRAVITY 1.016
[2019-09-19 19:48] LABS: URINE AMPHETAMINES SCREEN NEGATIVE; URINE BARBITURATES SCREEN NEGATIVE; URINE BENZODIAZEPINES SCREEN NEGATIVE; URINE COCAINE SCREEN NEGATIVE; URINE METHADONE SCREEN NEGATIVE; URINE PHENCYCLIDINE SCREEN NEGATIVE
[2019-09-19] MEDS ORDERED: LIDOCAINE 1% INJ-PF (10 MG/ML) 30 ML SDV INJ ONE (19:52)
[2019-09-19] MEDS ORDERED: CEFTRIAXONE INJ 1000 MG VIAL IM ONE (19:52)
[2019-09-19] MEDS ORDERED: CEFTRIAXONE INJ 1000 MG VIAL ONE (19:55)
[2019-09-19] MEDS ORDERED: LIDOCAINE 1% INJ-PF (10 MG/ML) 30 ML SDV ONE (19:55)
[2019-09-19 20:59] LABS: URINE MARIJUANA (THC) SCREEN UNCONFIRMED POSITIVE
== END 2019-09-19 20:10 | disposition home or self-care (01) ==
LOC: LC 18:52
PROVIDERS: ATTEND Obstetrics & Gynecology
DX: Z34.83 Encounter for supervision of other normal pregnancy, third trimester (principal); Z3A.31 31 weeks gestation of pregnancy
CPT/HCPCS: 59899; 81001; 80307; J3490; J0696; 87086

== ENCOUNTER 2019-10-30 23:57 | Outpatient (CLI) | payer MEDICAID ==
[2019-10-31 00:20] LABS: APPEARANCE,URINE CLEAR; BILIRUBIN,URINE NEGATIVE (NEGATIVE); COLOR,URINE YELLOW; GLUCOSE, URINE NEGATIVE (NEGATIVE); KETONES,URINE NEGATIVE (NEGATIVE); LEUKOCYTE ESTERASE,URINE TRACE (NEGATIVE); NITRITE,URINE NEGATIVE (NEGATIVE); PROTEIN,URINE NEGATIVE (NEGATIVE); URINE SPECIFIC GRAVITY 1.013
[2019-10-31 00:41] LABS: URINE AMPHETAMINES SCREEN NEGATIVE; URINE BARBITURATES SCREEN NEGATIVE; URINE BENZODIAZEPINES SCREEN NEGATIVE; URINE COCAINE SCREEN NEGATIVE; URINE METHADONE SCREEN NEGATIVE; URINE PHENCYCLIDINE SCREEN NEGATIVE
[2019-10-31] MEDS ORDERED: ONDANSETRON 4 MG TAB.RAPDIS ONE (00:41)
[2019-10-31 00:47] LABS: URINE MARIJUANA (THC) SCREEN UNCONFIRMED POSITIVE
[2019-10-31] MEDS ORDERED: ONDANSETRON 4 MG TAB.RAPDIS PO ONE (01:15)
[2019-10-31] MEDS ORDERED: HYDROXYZINE PAMOATE 50 MG CAPSULE ONE (01:49)
[2019-10-31] MEDS ORDERED: HYDROXYZINE PAMOATE 50 MG CAPSULE PO ONE (02:30)
== END 2019-10-31 02:07 | disposition home or self-care (01) ==
LOC: LC 23:57
PROVIDERS: ATTEND Obstetrics & Gynecology Gynecology
DX: Z34.83 Encounter for supervision of other normal pregnancy, third trimester (principal); Z3A.37 37 weeks gestation of pregnancy
CPT/HCPCS: 59025; 81005; 80307; G0480 ×2; S0119; J3490; 80349

== ENCOUNTER 2019-11-12 05:47 | Inpatient (IN) | payer MEDICAID ==
[2019-11-12] MEDS ORDERED: LIDOCAINE 1% INJ-PF (10 MG/ML) 30 ML SDV ONE (06:29)
[2019-11-12] MEDS ORDERED: OXYTOCIN/0.9 % SODIUM CHLORIDE 30 UNIT/500 ML RTUINJ ONE (06:29)
[2019-11-12] MEDS ORDERED: MISOPROSTOL 0.2 MG TABLET ONE (06:29)
[2019-11-12] MEDS ORDERED: OXYTOCIN 10 UNIT/ML VIAL ONE (06:29)
[2019-11-12] MEDS ORDERED: RINGERS SOLUTION,LACTATED 1,000 ML IV ONE (06:30)
[2019-11-12 07:09] LABS: ABSOLUTE EOSINOPHILS # (AUTO) 0.1 10^3/uL (0.0-0.6); ABSOLUTE LYMPHOCYTES (AUTO) 2.6 10^3/uL (0.5-4.7); ABSOLUTE MONOCYTES (AUTO) 0.6 10^3/uL (0.1-1.4); ABSOLUTE NEUT (AUTO) 4.7 10^3/uL (1.7-8.2); BASOPHILS % (AUTO) 0.5 % (0-2); EOSINOPHILS % (AUTO) 0.8 % (0-6); HEMATOCRIT 28.8 % (36.0-47.0); HEMOGLOBIN 9.9 g/dL (12.0-15.5); LYMPHOCYTES % (AUTO) 32.8 % (13-45); MEAN CORPUSCULAR HGB CONC 34.2 g/dL (32.0-36.0); MEAN CORPUSCULAR VOLUME 82 fl (80-97); MONOCYTES % (AUTO) 7.7 % (3-13); PLATELET COUNT 213 10^3/uL (150-450); RED BLOOD COUNT 3.51 10^6/uL (3.72-5.28); RED CELL DISTRIBUTION WIDTH 15.4 % (11.5-14.0); SEGMENTED NEUTROPHILS % (AUTO) 58.2 % (42-78); TOTAL CELLS COUNTED % (AUTO) 100 %
[2019-11-12 07:37] LABS: URINE AMPHETAMINES SCREEN NEGATIVE; URINE BARBITURATES SCREEN NEGATIVE; URINE BENZODIAZEPINES SCREEN NEGATIVE; URINE COCAINE SCREEN NEGATIVE; URINE MARIJUANA (THC) SCREEN NEGATIVE; URINE METHADONE SCREEN NEGATIVE; URINE PHENCYCLIDINE SCREEN NEGATIVE
[2019-11-12] MEDS ORDERED: FENTANYL/BUPIVACAINE/NS/PF 300 MCG/150 ML RTUINJ EPI ONE (07:59)
[2019-11-12] MEDS ORDERED: EPHEDRINE SULFATE INJ 50 MG/1 ML AMPULE ONE (07:59)
[2019-11-12] MEDS ORDERED: BUPIVACAINE HCL 0.25 % INJ/PF (2.5 MG/1 ML) 30 ML VIAL ONE (08:00)
--- NOTE | 2019-11-12 08:19 | Admission Physical ---
Datetime Report Generated by CPN: 11/12/2019 08:18 CURRENT ADMISSION Chief Complaint: Scheduled Induction of Labor Indication for Induction: Other Indication for Induction- Other: Grand multip w hx precipitous delivery. x4. Admit Impression : Term, Intrauterine ; Intact Membranes; Induction of Labor Admit Plan: Initiate Labor Induction Protocol ALLERGIES Medication Allergies: No Medication Allergies: No Known Drug Allergies (11/12/2019); pineapple (11/12/2019) Latex: No Latex Allergies OBSTETRICAL HISTORY EDC: 11/17/2019 00:00 : 8 Para: 7 Term: 6 : 1 SAB: 0 IAB: 0 Ectopic: 0 Livin Cesareans: 1 VBACs: 5 Multiple Births: 0 Gestational Diabetes: Yes Rh Sensitization: No Incompetent Cervix: No ELLIOT: No Infertility: No ART Treatment: No Uterine Anomaly: No IUGR: No Hx Previous C/S: Yes Macrosomia: No Hx Loss/Stillborn: No PIH: Yes Hx : No Placenta Previa/Abruption: No Depression/PP Depression: Yes PTL/PROM: No Post Hemorrhage: No Current Procedures: Ultrasound; NST Obstetrical History Comments: G1- 2007 at 40 weeks G2-2009 G3- 2010 at 40 weeks G4- 2011 G5- 2013 at 40 weeks G6- 2015 G- 2017 gdm G8 current SEE RECORDS Alcohol: No Marijuana : No Cocaine: No Other Illicit Drugs: No Cigarettes: Never Smoker. [id number] MEDICAL HISTORY Diabetes: Yes Diabetes Type: Gestational Diabetes Blood Transfusion: No Pulmonary Disease (Asthma, TB): No Breast Disease: No Hypertension: Yes [facility] Surgery: No Heart Disease: No Hosp/Surgery: Yes Autoimmune Disorder: No Anesthetic Complications: No Kidney Disease: Yes Abnormal Pap Smear: No Neuro/Epilepsy: No Psychiatric Disorders: No Other Medical Diseases: No Hepatitis/Liver Disease: No Significant Family History: No Varicosities/Phlebitis: No Trauma/Violence : No Thyroid Dysfunction: No Medical History Comments: UTI with current , pre-e with first baby (per records states pree with four of the pregnancies), anxiety/depression on zoloft, childbirthx5, , smoker, gdm with previous (Annotations: Data stored by N on behalf of user) INFECTIOUS HISTORY Gonorrhea: No Genital Herpes: No Chlamydia: No Tuberculosis: No Syphilis: No Hepatitis: No HIV/AIDS Exposure: No Rash or Viral Illness: No HPV: No PHYSICAL EXAM General: Normal HEENT: Normal Neurologic: Normal Thyroid: Deferred Heart: Normal Lungs: Normal Breast: Deferred Back: Normal Abdomen: Normal Genitourinary Exam: Deferred Extremities: Normal DTRs: Normal Pelvic Type: Adequate Physical Exam Comments: Proven for 8lbs 10oz Vital Signs: Reviewed; Within Normal Limits FETUS A EGA: 39.2 Monitoring: External US FHR- Baseline: 135 Variability: Moderate 6-25bpm Accelerations: 15X15 Presentation: Vertex Admit Comment: Previous c/s for bradycardia; 4 VBACs Hx GDM and PIH Smoker Anxiety/depression 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
[2019-11-12] MEDS: RINGERS SOLUTION,LACTATED 1,000 ML IV PRN ×2 (08:22→16:21)
[2019-11-12] MEDS ORDERED: OXYTOCIN/0.9 % SODIUM CHLORIDE 30 UNIT/500 ML RTUINJ IV PRN ×2 (13:47→19:22)
[2019-11-12] MEDS ORDERED: PROMETHAZINE HCL INJ 25 MG/1 ML VIAL IV PRN (19:22)
[2019-11-12] MEDS ORDERED: PSEUDOEPHEDRINE HCL 30 MG TABLET PO PRN (19:22)
[2019-11-12] MEDS ORDERED: MAGNESIUM HYDROXIDE SUSP 30 ML UDCUP PO PRN (19:22)
[2019-11-12] MEDS ORDERED: GLYCERIN/WITCH HAZEL LEAF 1 EACH MED..WIPE TP PRN (19:22)
[2019-11-12] MEDS ORDERED: DIPH/PERTUSS(ACELL)/TETANUS VAC/PF 0.5 ML SYR (>=10YO) IM PRN (19:22)
[2019-11-12] MEDS ORDERED: BENZOCAINE/MENTHOL AEROSOL SPRAY 56 ML TOP PRN (19:22)
[2019-11-12] MEDS ORDERED: PROMETHAZINE HCL 25 MG SUPP.RECT PR PRN (19:22)
[2019-11-12] MEDS ORDERED: NA PHOS,M-B/NA PHOS,DI-BA (ADULT) 133 ML ENEMA PR PRN (19:22)
[2019-11-12] MEDS ORDERED: ZOLPIDEM TARTRATE 5 MG TABLET PO PRN (19:22)
[2019-11-12] MEDS ORDERED: DIPHENHYDRAMINE HCL 25 MG CAPSULE PO PRN (19:22)
[2019-11-12] MEDS ORDERED: PROMETHAZINE HCL 25 MG TABLET PO PRN (19:22)
[2019-11-12] MEDS ORDERED: ACETAMINOPHEN 650 MG SUPP.RECT PR PRN (19:22)
[2019-11-12] MEDS ORDERED: ACETAMINOPHEN WITH CODEINE #3 TABLET PO PRN ×2 (19:22)
[2019-11-12] MEDS ORDERED: MEASLES,MUMPS&RUBELLA VACC/PF 0.5 ML VIAL SUBCUT PRN (19:22)
[2019-11-12] MEDS ORDERED: DIBUCAINE 1% OINTMENT 28 GM TP PRN (19:22)
[2019-11-12] MEDS: IBUPROFEN 800 MG TABLET PO SCH (22:41)
[2019-11-12] MEDS: FAMOTIDINE 20 MG TABLET PO SCH (22:42)
[2019-11-12] MEDS: SERTRALINE HCL 50 MG TABLET PO SCH (22:44)
[2019-11-13] MEDS: IBUPROFEN 800 MG TABLET PO SCH ×3 (06:11→21:17)
[2019-11-13 07:31] LABS: HEMATOCRIT 24.9 % (36.0-47.0); HEMOGLOBIN 8.5 g/dL (12.0-15.5); MEAN CORPUSCULAR HEMOGLOBIN 27.5 pg (27.0-33.4); MEAN CORPUSCULAR HGB CONC 34.1 g/dL (32.0-36.0); MEAN CORPUSCULAR VOLUME 81 fl (80-97); PLATELET COUNT 183 10^3/uL (150-450); RED BLOOD COUNT 3.09 10^6/uL (3.72-5.28); WHITE BLOOD COUNT 11.7 10^3/uL (4.0-10.5)
--- NOTE | 2019-11-13 09:21 | PDOC PROGRESS REPORT ---
Subjective-OB Progress Note for:: 11/13/19 Subjective: Doing well, no c/o, ready to go home, bottle feeding, voiding, scant bleeding, diet taken well Physical Exam (OB) Vital Signs: Intake & Output 11/12/19 11/13/19 11/14/19 06:59 06:59 06:59 Intake Total 998 Balance 998 Weight 91.4 kg Objective-Diagnostic Laboratory: 11/13/19 07:17 11/13/19 07:17 WBC 11.7 H RBC 3.09 L Hgb 8.5 L Hct 24.9 L MCV 81 MCH 27.5 MCHC 34.1 RDW 15.0 H Plt Count 183 Assessment and Plan(PN) - Assessment and Plan (1) Acute blood loss anemia Is this a current diagnosis for this admission?: Yes (2) , delivered Is this a current diagnosis for this admission?: Yes (3) Vaginal delivery Is this a current diagnosis for this admission?: Yes (4) No care in current Qualifiers: Trimester: third trimester Qualified Code(s): O09.33 - Supervision of with insufficient care, third trimester Is this a current diagnosis for this admission?: Yes - Time Spent with Patient Time with patient: Less than 15 minutes Medications reviewed and adjusted accordingly: Yes - Disposition Anticipated Discharge: Home
[2019-11-13] MEDS: FERROUS SULFATE 325 MG TABLET PO SCH ×2 (09:27→17:37)
[2019-11-13] MEDS: DOCUSATE SODIUM 100 MG CAPSULE PO SCH ×2 (09:27→17:37)
[2019-11-13] MEDS: FAMOTIDINE 20 MG TABLET PO SCH ×2 (09:27→21:18)
[2019-11-13] MEDS: PRENATAL VITAMIN W DHA CAPSULE PO SCH (09:27)
[2019-11-13] MEDS: SENNOSIDES/DOCUSATE 8.6-50 MG 1 EACH TABLET PO SCH (09:27)
[2019-11-13] MEDS: SERTRALINE HCL 50 MG TABLET PO SCH (09:29)
[2019-11-14] MEDS: IBUPROFEN 800 MG TABLET PO SCH (05:27)
[2019-11-14] MEDS: FAMOTIDINE 20 MG TABLET PO SCH (09:55)
[2019-11-14] MEDS: SENNOSIDES/DOCUSATE 8.6-50 MG 1 EACH TABLET PO SCH (09:55)
[2019-11-14] MEDS: DOCUSATE SODIUM 100 MG CAPSULE PO SCH (09:55)
[2019-11-14] MEDS: FERROUS SULFATE 325 MG TABLET PO SCH (09:55)
[2019-11-14] MEDS: PRENATAL VITAMIN W DHA CAPSULE PO SCH (09:55)
[2019-11-14] MEDS: SERTRALINE HCL 50 MG TABLET PO SCH (09:58)
[2019-11-14] MEDS ORDERED: IRON SUCROSE COMPLEX INJ/PF 100 MG/5 ML SDV IV ONE (10:45)
--- NOTE | 2019-11-14 11:59 | PDOC DISCHARGE SUMMARY ---
Impression - Admit/DC Date/PCP Admission Date/Primary Care Provider: 11/12/19 05:47 DEVONTE KHAN MD Discharge Date: 11/14/19 - Discharge Diagnosis (1) Smoker Is this a current diagnosis for this admission?: Yes (2) History of depression Is this a current diagnosis for this admission?: Yes (3) Anemia complicating , third trimester Is this a current diagnosis for this admission?: Yes (4) Acute blood loss anemia Is this a current diagnosis for this admission?: Yes (5) , delivered Is this a current diagnosis for this admission?: Yes (6) Is this a current diagnosis for this admission?: Yes (7) Vaginal delivery Is this a current diagnosis for this admission?: Yes (8) Encounter for induction of labor Is this a current diagnosis for this admission?: Yes - Assessment Summary: 29yo G7 now P7 s/p ppd2, stable and ready for discharge, denies any concerns. Understands warning s/s and when to rtc/[facility]. - Additional Information Resuscitation Status: Full Code Discharge Diet: As Tolerated, Regular Discharge Activity: Activity As Tolerated, Balance Activity w/Rest, No Lifting Over 10 Pounds, Pelvic Rest, Slowly Increase Activity, No tub bath, Walk Freque ntly Referrals: DEVONTE KHAN MD [Primary Care Provider] - Prescriptions: Ibuprofen [Motrin 800 mg Tablet] 800 mg PO Q8HP PRN #20 tablet PRN Reason: Abdominal Cramping Docusate Sodium [Colace 100 mg Capsule] 100 mg PO BID #60 capsule Ferrous Sulfate [Feosol 325 mg Tablet] 325 mg PO BID #60 tablet Home Medications: Vit No.130/Iron/Folic [ Tablet] 1 each PO DAILY 09/19/19 Sertraline HCl [Zoloft 50 mg Tablet] 1 tab PO DAILY 10/31/19 Docusate Sodium [Colace 100 mg Capsule] 100 mg PO BID #60 capsule 11/14/19 Ferrous Sulfate [Feosol 325 mg Tablet] 325 mg PO BID #60 tablet 11/14/19 Ibuprofen [Motrin 800 mg Tablet] 800 mg PO Q8HP PRN #20 tablet 11/14/19 Results Laboratory Results: WBC 11.7 10^3/uL (4.0-10.5) H 11/13/19 07:17 RBC 3.09 10^6/uL (3.72-5.28) L 11/13/19 07:17 Hgb 8.5 g/dL (12.0-15.5) L 11/13/19 07:17 Hct 24.9 % (36.0-47.0) L 11/13/19 07:17 MCV 81 fl (80-97) 11/13/19 07:17 MCH 27.5 pg (27.0-33.4) 11/13/19 07:17 MCHC 34.1 g/dL (32.0-36.0) 11/13/19 07:17 RDW 15.0 % (11.5-14.0) H 11/13/19 07:17 Plt Count 183 10^3/uL (150-450) 11/13/19 07:17 Lymph % (Auto) 32.8 % (13-45) 11/12/19 06:34 [place] % (Auto) 7.7 % (3-13) 11/12/19 06:34 Eos % (Auto) 0.8 % (0-6) 11/12/19 06:34 Baso % (Auto) 0.5 % (0-2) 11/12/19 06:34 Absolute Neuts (auto) 4.7 10^3/uL (1.7-8.2) 11/12/19 06:34 Absolute Lymphs (auto) 2.6 10^3/uL (0.5-4.7) 11/12/19 06:34 Absolute Monos (auto) 0.6 10^3/uL (0.1-1.4) 11/12/19 06:34 Absolute Eos (auto) 0.1 10^3/uL (0.0-0.6) 11/12/19 06:34 Absolute Basos (auto) 0.0 10^3/uL (0.0-0.2) 11/12/19 06:34 Seg Neutrophils % 58.2 % (42-78) 11/12/19 06:34 Urine Opiates Screen NEGATIVE 11/12/19 05:59 Urine Methadone Screen NEGATIVE 11/12/19 05:59 Ur Barbiturates Screen NEGATIVE 11/12/19 05:59 Ur Phencyclidine Scrn NEGATIVE 11/12/19 05:59 Ur Amphetamines Screen NEGATIVE 11/12/19 05:59 U Benzodiazepines Scrn NEGATIVE 11/12/19 05:59 Urine Cocaine Screen NEGATIVE 11/12/19 05:59 U Marijuana (THC) Screen NEGATIVE 11/12/19 05:59 RPR NONREACTIVE (NONREACTIVE) 11/12/19 06:34 Blood Type A POSITIVE 11/12/19 06:34 Antibody Screen NEGATIVE 11/12/19 06:34
[2019-11-14 12:29] VITALS: BP 140/90
--- NOTE | 2019-11-15 19:25 | Delivery Summary ---
Del Sum A-C Datetime Report Generated by CPN: 11/15/2019 19:25 DELIVERY PERSONNEL DELIVERY PERSONNEL: [id number] Delivery Doctor:: Imelda Padilla MD Labor and Delivery Nurse:: Coty Silva RNdirector of enterprise applications Nurse:: PRICE Clark Nursery Nurse:: EMERSON Marie/SUPERVISOR LATHING: Anisa Mills, INSTRUCTIONAL DESIGN CONSULTANT MATERNAL INFORMATION Delivery Anesthesia: Epidural Medications After Delivery: Pitocin Bolus-Please Comment; Pitocin 30 Units in 500ml NS/D5W Meds After Delivery Comment: 30 units Pitocin in 500mLs NS open bolus Estimated Blood Loss (ml): 250 Delivery QBL: 250 Maternal Complications: None LABOR SUMMARY EDC: 11/17/2019 00:00 No. Babies in Womb: 1 Attempted: Yes Labor Anesthesia: Epidural LABOR INFORMATION Reason for Induction: Other Reason for Induction- Other: history of precipitous delivery Onset of Labor: 11/12/2019 14:02 Complete Dilatation: 11/12/2019 18:21 Oxytocin: Induction Group B Beta Strep: negative Antibiotics # of Doses: n/a Steroids Given: None Reason Steroids Not Administered: Not Applicable MEMBRANES Membranes Rupture Method: Artificial Rupture of Membranes: 11/12/2019 16:09 Length of Rupture (hr): 2.90 Amniotic Fluid Color: Clear Amniotic Fluid Amount: Small Amniotic Fluid Amount: None Amniotic Fluid Odor: None STAGES OF LABOR Stage 1 hr: 4 Stage 1 min: 19 Stage 2 hr: 0 Stage 2 min: 42 Stage 3 hr: 0 Stage 3 min: 5 Total Time in Labor hr: 5 Total Time in Labor min: 6 VAGINAL DELIVERY Episiotomy: None Laceration #1: None Laceration Extension #1: N/A Laceration Repair: Not Applicable Sponge Count Correct: N/A Sharps Count Correct: N/A CSECTION DELIVERY Primary Indication: N/A Secondary Indication: N/A CSection Incidence: N/A Labor: N/A Elective: N/A CSection Incision: N/A BABY A INFORMATION Infant Delivery Date/Time: 11/12/2019 19:03 Method of Delivery: Vaginal Nurse Controlled Delivery: No Born in Route : No : Successful Forceps: N/A Vacuum Extraction: N/A Shoulder Dystocia : No PRESENTATION/POSITION BABY A Presentation: Cephalic Cephalic Presentation: Vertex Vertex Position: Right Occipital Anterior Breech Presentation: N/A PLACENTA INFORMATION BABY A Placenta Delivery Time : 11/12/2019 19:08 Placenta Method of Delivery: Spontaneous Placenta Status: Delivered SCORES BABY A Heart Rate 1 min: >100 bpm Resp Effort 1 min: Good Cry Reflex Irritability 1 min: Cough or Sneeze or Pulls Away Muscle Tone 1 min: Active Motion Color 1 min: Blue/Pale SCORE 1 MIN: 8 Heart Rate 5 min: >100 bpm Resp Effort 5 min: Good Cry Reflex Irritability 5 min: Cough or Sneeze or Pulls Away Muscle Tone 5 min: Active Motion Color 5 min: Body [place], Extremities Blue SCORE 5 MIN: 9 INFANT INFORMATION BABY A Gestational Age at Delivery: 39.2 Gestational Status: Full Term- 39- 40.6 Weeks Outcome : Liveborn Condition : Stable Sex: Male Infant Sex: Male IDENTIFICATION BABY A Verification Date/Time: 11/12/2019 19:16 ID Band Number: [id number] Mother's Name Verified: Yes Infant RN Verifying : Constance Trevino, RN and Jenna Silva WEIGHT/LENGTH BABY A Birthweight (gm): 3980 Infant Weight (lb): 8 Infant Weight (oz): 12 Infant Length (in): 21.50 Length (cm): 54.61 CORD INFORMATION BABY A No. Cord Vessels: 3 Nuchal Cord : N/A Cord Blood Taken: Yes-For Storage (Mom's Blood type +) Infant Suction: None ASSESSMENT BABY A Complications: None Physical Findings at Delivery: Within Normal Limits Infant Respirations: Appears Normal Skin to Skin: No Stock Manager/ALS Called : No Infant Care By: Rula Dutton RN Transferred To: Remains with Mother SIGNATURES Signature: with User ID: [email or web address] : I personally evaluated and examined the patient in conjunction with the MLP and agree with the assessment, treatment plan and disposition. : I personally evaluated and examined the patient in conjunction with the MLP and agree with the assessment, treatment plan and disposition. : I personally evaluated and examined the patient in conjunction with the MLP and agree with the assessment, treatment plan and disposition.
== END 2019-11-14 13:39 | disposition home or self-care (01) | DRG 806 ==
LOC: LR 05:47 → 2S 21:11
PROVIDERS: ADMIT Obstetrics & Gynecology; ATTEND Obstetrics & Gynecology
PROC: 10E0XZZ Delivery of Products of Conception, External Approach (ICD-10-PCS; principal; 2019-11-12)
PROC: 10907ZC Drainage of Amniotic Fluid, Therapeutic from Products of Conception, Via Natural or Artificial Opening (ICD-10-PCS; 2019-11-12)
PROC: 3E033VJ Introduction of Other Hormone into Peripheral Vein, Percutaneous Approach (ICD-10-PCS; 2019-11-12)
DX: O34.211 Maternal care for low transverse scar from previous cesarean delivery (principal); D62 Acute posthemorrhagic anemia; Z37.0 Single live birth; O99.334 Smoking (tobacco) complicating childbirth; F17.210 Nicotine dependence, cigarettes, uncomplicated; O99.344 Other mental disorders complicating childbirth; F32.9 Major depressive disorder, single episode, unspecified; O90.81 Anemia of the puerperium; F41.9 Anxiety disorder, unspecified; Z3A.39 39 weeks gestation of pregnancy
CPT/HCPCS: 1967; 36415; 80307; 85025; 85027; 86592; 86850; 86900; 86901; 94760; J1756; J2590; J3010; J3490

== ENCOUNTER 2019-11-19 10:04 | Emergency (ER) | payer MEDICAID ==
--- NOTE | 2019-11-19 10:40 | ER Document Report ---
ED Medical Screen (RME) - General Chief Complaint: Blood Pressure Problem Stated Complaint: BLOOD PRESSURE ISSUE Time Seen by Provider: 11/19/19 10:38 Primary Care Provider: DEVONTE KHAN MD [Primary Care Provider] - Follow up as needed Mode of Arrival: Ambulatory Information source: Patient Notes: 29-year-old female presented to ED for complaint of high blood pressure 1 week . She was seen by her doctor and had protein in her urine with a very elevated blood pressure. Blood pressures 182/102 at this time with a manual cuff on her right arm sitting up. Is alert oriented respirations regular and unlabored speaking in full sentences at this time. TRAVEL OUTSIDE OF THE [place] IN LAST 30 DAYS: No - Related Data Allergies/Adverse Reactions: No Known Drug Allergies Allergy (Verified 11/12/19 05:54) pineapple Allergy (Verified 11/12/19 05:54) Past Medical History Pulmonary Medical History: Denies: Hx Asthma, Hx Bronchitis, Hx COPD, Hx Pneumonia, Hx Intubation, Hx Respiratory Failure, Hx Sleep Apnea, Hx Tuberculosis Neurological Medical History: Reports: Hx Migraine Endocrine Medical History: Denies: Hx Diabetes Mellitus Type 1. Comment Only: Hx Diabetes Mellitus Type 2 - gestational Renal/ Medical History: Denies: Hx Peritoneal Dialysis Psychiatric Medical History: Reports: Hx Depression Past Surgical History: Reports: Hx Section - 1 - Immunizations Hx Diphtheria, Pertussis, Tetanus Vaccination: Yes - 09/22/15 Physical Exam - Vital signs Vitals: Temp Pulse Resp BP Pulse Ox 98.8 F 67 16 179/104 H 99 11/19/19 10:11/19/19 10:11/19/19 10:11/19/19 10:17 11/19/19 10:17 Course - Vital Signs Vital signs: Temp Pulse Resp BP Pulse Ox 98.8 F 67 16 179/104 H 99 11/19/19 10:11/19/19 10:11/19/19 10:11/19/19 10:17 11/19/19 10:17 Doctor's Discharge - Discharge Referrals: DEVONTE KHAN MD [Primary Care Provider] - Follow up as needed
[2019-11-19] MEDS ORDERED: AMLODIPINE BESYLATE 10 MG TABLET PO ONE (10:56)
--- NOTE | 2019-11-19 11:09 | ER Document Report ---
ED General - General Chief Complaint: High Blood Pressure Stated Complaint: BLOOD PRESSURE ISSUE Time Seen by Provider: 11/19/19 10:38 Primary Care Provider: DEVONTE KHAN MD [Primary Care Provider] - Follow up as needed RAQUEL CORTÉS MD [ACTIVE STAFF] - Follow up in 3-5 days Mode of Arrival: Ambulatory Notes: 29-year-old female in the first week presenting with hypertension. She has mild intermittent headaches but nothing constant or severe. She has no eye symptoms, edema jerky movements confusion or dizziness. She has a history of hypertension after her first , delivered uncomplicated vaginally less than a week ago and was discharged with normal blood pressure. Today was seen in routine follow-up, essentially asymptomatic and noted to be hypertensive. No history of gestational diabetes preeclampsia or medication for hypertension outside of her first . TRAVEL OUTSIDE OF THE [place] IN LAST 30 DAYS: No - Related Data Allergies/Adverse Reactions: No Known Drug Allergies Allergy (Verified 11/19/19 10:40) pineapple Allergy (Verified 11/19/19 10:40) Past Medical History - General Information source: Patient - Social History Smoking Status: Never Smoker Chew tobacco use (# tins/day): No Frequency of alcohol use: None Drug Abuse: None Family History: Reviewed & Not Pertinent Patient has homicidal ideation: No Pulmonary Medical History: Denies: Hx Asthma, Hx Bronchitis, Hx COPD, Hx Pneumonia, Hx Intubation, Hx Re spiratory Failure, Hx Sleep Apnea, Hx Tuberculosis Neurological Medical History: Reports: Hx Migraine Endocrine Medical History: Denies: Hx Diabetes Mellitus Type 1. Comment Only: Hx Diabetes Mellitus Type 2 - gestational Renal/ Medical History: Denies: Hx Peritoneal Dialysis Psychiatric Medical History: Reports: Hx Depression Past Surgical History: Reports: Hx Section - 1 - Immunizations Hx Diphtheria, Pertussis, Tetanus Vaccination: Yes - 09/22/15 Review of Systems - Review of Systems Notes: REVIEW OF SYSTEMS GEN: Denies fever, chills, weight loss ENT: Denies sore throat, nasal discharge, ear pain EYES: Denies blurry vision, eye pain, discharge CV: Denies chest pain, palpitations, edema RESP: Denies cough, shortness of breath, wheezing GI: Denies abdominal pain, nausea, vomiting, diarrhea MSK: Denies joint pain/swelling, edema, SKIN: Denies rash, skin lesions LYMPH: Denies swollen glands/lymph nodes NEURO: Mild headache, denies focal weakness or numbness, dizziness PSYCH: Denies depression, suicidal or homicidal ideation PHYSICAL EXAMINATION General: No acute distress, well-nourished Head: Atraumatic, normocephalic ENT: Mouth normal, oropharynx moist, no exudates or tonsillar enlargement Eyes: Conjunctiva normal, pupils equal, lids normal Neck: No JVD, supple, no guarding CVS: Normal rate, regular rhythm, no murmurs Resp: No resp distress, equal and normal breath sounds bilaterally GI: Nondistended, soft, no tenderness to palpation, no rebound or guarding Ext: No deformities, no edema, normal range of motion in upper and lower ext Back: No CVA or midline TTP Skin: No rash, warm Lymphatic: No lymphadeopathy noted Neuro: Awake, alert. Face symmetric. GCS 15. Language no gross motor or sensory deficits. Physical Exam - Vital signs Vitals: Temp Pulse Resp BP Pulse Ox 98.8 F 67 16 179/104 H 99 11/19/19 10:17 11/19/19 10:17 11/19/19 10:17 11/19/19 10:17 11/19/19 10:17 Course - Re-evaluation Re-evalutation: 11/19/19 12:23 Presents asymptomatic hypertension after pregnancyhistory of same No preeclampsia or hypertension during the . 7 days Neuro exam is normal Given oral amlodipine to gently lower blood pressure without causing complic ation Lab work-up does not show low platelets LFTs are very slightly elevated but nowhere near the level of HELLP Mild protein in the urine but able to check spot protein creatinine ratio Patient looks very well without hyperreflexia and I doubt this reflects preeclampsia Discussed with Dr. Cortés who agrees. Recommends hydrochlorothiazide discharge and follow-up in office Repeat BP is down Repeat exam: Still having has no symptoms and no neuro findings I have discussed with the patient there likely diagnosis, aftercare plan, follow-up plans and my usual and customary return precautions. They verbalized understanding of this. - Vital Signs Vital signs: Temp Pulse Resp BP Pulse Ox 98.8 F 67 18 181/116 H 93 11/19/19 10:37 11/19/19 10:17 11/19/19 11:00 11/19/19 10:47 11/19/19 11:00 - Laboratory Result Diagrams: 11/19/19 11:02 11/19/19 11:02 Laboratory results interpreted by me: 11/19/19 11/19/19 11/19/19 11:02 11:02 11:02 WBC 10.9 H Hgb 11.4 L Hct 34.1 L RDW 16.4 H Absolute Neuts (auto) 8.3 H Chloride 108 H ALT 83 H Alkaline Phosphatase 172 H Albumin 3.4 L Urine Protein 30 H Urine Blood SMALL H Urine Urobilinogen 2.0 H Discharge - Discharge Clinical Impression: Hypertension in , condition Condition: Good Disposition: HOME, SELF-CARE Instructions: High Blood Pressure, Requiring Treatment ([facility]), Hydrochlorothi azide ([facility]) Additional Instructions: If you develop headache dizziness blurry vision bruising spots or rash or worsening leg swelling return to the ER immediately Prescriptions: Hydrochlorothiazide 12.5 mg PO QAM #14 tablet Referrals: DEVONTE KHAN MD [Primary Care Provider] - Follow up as needed RAQUEL CORTÉS MD [ACTIVE STAFF] - Follow up in 3-5 days
[2019-11-19 11:24] LABS: ABSOLUTE EOSINOPHILS # (AUTO) 0.1 10^3/uL (0.0-0.6); ABSOLUTE LYMPHOCYTES (AUTO) 1.8 10^3/uL (0.5-4.7); ABSOLUTE MONOCYTES (AUTO) 0.7 10^3/uL (0.1-1.4); ABSOLUTE NEUT (AUTO) 8.3 10^3/uL (1.7-8.2); BASOPHILS % (AUTO) 0.4 % (0-2); EOSINOPHILS % (AUTO) 0.7 % (0-6); HEMATOCRIT 34.1 % (36.0-47.0); HEMOGLOBIN 11.4 g/dL (12.0-15.5); LYMPHOCYTES % (AUTO) 16.1 % (13-45); MEAN CORPUSCULAR HEMOGLOBIN 27.8 pg (27.0-33.4); MEAN CORPUSCULAR HGB CONC 33.5 g/dL (32.0-36.0); MEAN CORPUSCULAR VOLUME 83 fl (80-97); MONOCYTES % (AUTO) 6.6 % (3-13); PLATELET COUNT 353 10^3/uL (150-450); RED BLOOD COUNT 4.11 10^6/uL (3.72-5.28); RED CELL DISTRIBUTION WIDTH 16.4 % (11.5-14.0); SEGMENTED NEUTROPHILS % (AUTO) 76.2 % (42-78); TOTAL CELLS COUNTED % (AUTO) 100 %; WHITE BLOOD COUNT 10.9 10^3/uL (4.0-10.5)
[2019-11-19 11:29] LABS: APPEARANCE,URINE CLEAR; BILIRUBIN,URINE NEGATIVE (NEGATIVE); COLOR,URINE YELLOW; GLUCOSE, URINE NEGATIVE (NEGATIVE); KETONES,URINE NEGATIVE (NEGATIVE); LEUKOCYTE ESTERASE,URINE NEGATIVE (NEGATIVE); NITRITE,URINE NEGATIVE (NEGATIVE); PROTEIN,URINE 30 mg/dL (NEGATIVE); URINE SPECIFIC GRAVITY 1.019
[2019-11-19 11:46] LABS: ALBUMIN 3.4 g/dL (3.5-5.0); ALKALINE PHOSPHATASE 172 U/L (38-126); ANION GAP 5 (5-19); ASPARTATE AMINO TRANSFERASE 35 U/L (14-36); BILIRUBIN,TOTAL 0.3 mg/dL (0.2-1.3); BLOOD UREA NITROGEN 15 mg/dL (7-20); CALCIUM 8.8 mg/dL (8.4-10.2); CARBON DIOXIDE 26 mmol/L (22-30); CHLORIDE 108 mmol/L (98-107); GLUCOSE 90 mg/dL (75-110); POTASSIUM 4.3 mmol/L (3.6-5.0); TOTAL PROTEIN 6.8 g/dL (6.3-8.2)
[2019-11-19] MEDS ORDERED: HYDROCHLOROTHIAZIDE 12.5 MG TABLET PO ONE (12:29)
[2019-11-19 13:22] VITALS: BP 160/103
== END 2019-11-19 13:25 | disposition home or self-care (01) ==
LOC: ER 10:04
DX: O16.5 Unspecified maternal hypertension, complicating the puerperium (principal); R51 Headache
CPT/HCPCS: 36415; 80053; 81001; 83735; 85025; 99283